=== PATIENT | female | born 1940 | race Asian ===

== ENCOUNTER 2018-03-29 18:54 | Inpatient (IN) | payer OTHER ==
[~2018-03-29] VITALS: Ht 149.9 cm; Wt 46.8 kg
[2018-03-29 19:00] VITALS: Ht 149.9 cm; Wt 46.8 kg
[2018-03-29] MEDS ORDERED: SODIUM CHLORIDE 0.9% 1L BAG IV* STA (19:09)
--- NOTE | 2018-03-29 19:28 | ERD ---
ER Documentation Chief Complaint Chief Complaint BIBA [id number],fever,confused when found by EMS,back of neck pain HPI 77-year-old woman brought in by family member for fever and increased urinary frequency beginning this morning, patient states she feels weak and dehydrated and has lost her appetite. She has had no hematuria, no cough, no vomiting or diarrhea, no complaints of chest pain or shortness of breath ROS All systems reviewed and are negative except as per history of present illness. Medications Home Meds No Active Prescriptions or Reported Meds Allergies Allergies: Coded Allergies: No Known Allergy (Unverified , 03/29/18) PMhx/Soc Hypertension, arthritis FmHx Family History: No diabetes Physical Exam Vitals Vital Signs Date Temp Pulse Resp B/P (MAP) Pulse Ox O2 O2 Flow FiO2 Time Delivery Rate 03/29/18 100.4 112 18 77/46 (56) 98 Room Air 22:00 03/29/18 101.1 109 18 98/55 (69) 97 Room Air 21:15 03/29/18 101.1 115 107/63 98 Room Air 20:53 (78) 03/29/18 101.5 121 18 107/63 97 Room Air 20:30 (78) 03/29/18 102.7 19:43 03/29/18 103.2 119 18 109/57 95 19:00 (74) Physical Exam GENERAL: Well-developed, elderly woman, appears dehydrated, febrile HEENT: Dry mucous membranes, pink conjunctiva, no cervical spine tenderness or step-off deformities, no goiter, no jaundice or icterus, extraocular movements intact without pain. No submandibular induration, and no pharyngeal erythema NEURO: Alert and oriented 3, cranial nerves II through XII intact bilaterally, pupils equal round reactive to light, no focal deficits or facial asymmetry, sensation intact distally Strength 5/5 in upper and lower extremities bilaterally CARDIAC: Tachycardic and regular, no murmurs rubs or gallops LUNGS: Clear bilaterally no wheezing crackles or stridor ABDOMEN: Soft nontender, no guarding, no rigidity, no rebound, no psoas sign no obturator sign. SKIN: Warm and dry to touch, no abrasions, contusions, or hematomas, no lacerations, no ecchymosis, no target lesions, and without ulcers EXTREMITIES: No clubbing cyanosis or edema, calves are bilaterally symmetrical, no Homans sign, no popliteal cord sign. Distal pulses equal and bilateral PSYCH: Normal affect without agitation or irritability Result Diagram: 03/29/18192403/29/181924 Results 24 hrs Laboratory Tests Test 03/29/18 19:25 03/29/18 19:28 03/29/18 20:45 03/29/18 21:54 White Blood Count 3.2 10^3/ul Red Blood Count 3.88 10^6/ul Hemoglobin 12.3 g/dl Hematocrit 37.2 % Mean Corpuscular 95.9 fl Volume Mean Corpuscular 31.7 pg Hemoglobin Mean Corpuscular 33.1 g/dl Hemoglobin Concen t Red Cell 12.4 % Distribution Width Platelet Count 83 10^3/UL Mean Platelet 10.5 fl Volume Immature 0.000 % Granulocytes % Neutrophils % % Segmented 40 % Neutrophils % (Manual) Band Neutrophils 39 % % (Manual) Lymphocytes % % Lymphocytes % 14 % (Manual) Monocytes % % Monocytes % 5 % (Manual) Eosinophils % % Basophils % % Metamyelocytes % 2 % (manual) Nucleated Red 0.0 /100WBC Blood Cells % Immature 0.000 10^3/ul Granulocytes # Neutrophils # 10^3/ul Neutrophils # 1.3 10^3/ul (Manual) Band Neutrophils 1.2 10^3/ul # Lymphocytes 0.4 10^3/ul (Manual) Lymphocytes # 10^3/ul Monocytes # 10^3/ul Monocytes # 0.1 10^3/ul (Manual) Eosinophils # 10^3/ul Basophils # 10^3/ul Metamyelocytes # 0.0 10^3/ul Nucleated Red 10^3/ul Blood Cells # Platelet Estimate DECREASED Giant Platelets 3 % Prothrombin Time 15.4 Sec Prothrombin Time 1.2 Ratio INR International 1.21 Normalized Ratio Activated 36.8 Sec Partial Thrombopl ast Time Sodium Level 134 mmol/L Potassium Level 4.9 mmol/L Chloride Level 98 mmol/L Carbon Dioxide 27 mmol/L Level Anion Gap 9 Blood Urea 20 mg/dl Nitrogen Creatinine 0.94 mg/dl Est Glomerular mL/min Filtrat Rate mL/min Glucose Level 163 mg/dl Calcium Level 10.3 mg/dl Total Bilirubin 1.9 mg/dl Direct Bilirubin 0.20 mg/dl Indirect 1.7 mg/dl Bilirubin Aspartate Amino 116 IU/L Transf (AST/SGOT) Alanine 59 IU/L Aminotransferase (ALT/SGPT) Alkaline 145 IU/L Phosphatase Troponin I 0.026 ng/ml Total Protein 8.1 g/dl Albumin 4.1 g/dl Globulin 4.00 g/dl Albumin/Globulin 1.02 Ratio Lipase 48 U/L POC Venous 2.1 mmol/L 2.0 mmol/L Lactate Urine Color YELLOW Urine Clarity CLEAR Urine pH 5.0 Urine Specific 1.014 [place] Urine Ketones TRACE mg/dL Urine Nitrite NEGATIVE mg/dL Urine Bilirubin NEGATIVE mg/dL Urine 2+ mg/dL Urobilinogen Urine Leukocyte NEGATIVE Prince/ul Esterase Urine Microscopic 19 /HPF RBC Urine Microscopic 1 /HPF WBC Urine Squamous FEW /HPF Epithelial Cells Urine Mucus FEW /HPF Urine Hemoglobin 3+ mg/dL Urine Glucose NEGATIVE mg/dL Urine Total 2+ mg/dl Protein Current Medications Medications Dose Sig/[place] Start Time Status Last (Trade) Ordered Route PRN Stop Time Admin Dose Reason Admin Sodium 3,000 ml BOLUS OVER 2 03/29/18 DC 03/29/18 Chloride HOURS STAT 19:09 19:42 (NS) IV* 03/29/18 19:11 Ceftriaxone 50 ml @ ONCE ONCE 03/29/18 DC 03/29/18 Sodium 100 mls/hr IVPB 19:30 19:42 03/29/18 19:59 Ibuprofen 600 mg ONCE ONCE 03/29/18 DC 03/29/18 (Motrin) PO 19:30 19:43 03/29/18 19:31 Lidocaine 20 ml STK-MED 03/29/18 DC (Xylocaine ONCE .ROUTE 22:20 1% (Mdv) 20 03/29/18 22:21 ml) Lidocaine 30 ml ONCE STAT 03/29/18 DC (Xylocaine INJ 22:39 1% (Mpf)) 03/29/18 22:44 Sodium 1,000 ml @ Q30M ONCE 03/29/18 Chloride 2,000 mls/hr IV 23:00 03/29/18 23:29 250 ml @ TITRATE IV 03/29/18 Norepinephrin 1.875 mls/ 23:00 e hr Procedures/MDM IV line was established patient was placed on monitoring and evaluation advisor rhythm strip rev ealed a sinus tachycardia at 120 bpm with upright P and T waves. Patient was febrile, blood and urine cultures have been ordered results are pending I will follow-up. I administered 2 L normal saline IV for dehydration, ibuprofen 600 mg p.o. for fever and ceftriaxone 1 g IV. Patient later received another 2 L normal saline for hypotension, and also received Zosyn 3.375 g IV EKG performed, read by me: Sinus tachycardia at 113 bpm, normal sinus rhythm, normal axis, no acute ST segment changes, narrow QRS complex, with good R-wave progression in precordial leads. Chest X-ray 1V Interpreted by me: Soft Tissue: No acute abnormalities Bones: No acute abnormalities Mediastinum/Cardiac Silhouette/Lungs: No acute abnormalities CBC reveals leukopenia 3.2, electrolytes are unremarkable, liver function tests unremarkable, troponin negative, urinalysis negative. Lactic acid initially elevated at 2.1, repeat 2.0 Patient's infectious symptoms have not stabilized and the patient is at risk of rapid decompensation. The patient will be admitted for careful hydration, antibi otic therapy, and infectious source control. SEVERE SEPSIS CRITERIA: Infectious source: Unknown End organ damage indicated by: [Lactate > 2.0 mmol/L Hypotension (SBP < 90 or >40 mmHG drop or MAP < 65) SEPSIS MANAGEMENT Time of recognition of sepsis: Upon arrival. Time of recognition of severe sepsis: 2199. Time of recognition of septic shock: 0 3 HOUR BUNDLE Blood cultures x 2 before broad-spectrum antibiotics: Yes 30 ml/kg NS bolus completed Initial lactate 2.1 Repeat lactate 2.0 SEPTIC SHOCK ASSESSMENT: No lactic acid > 4.0 Yes persistent hypotension (SBP < 90 or 40 mmHg drop, MAP < 65) despite 30 mL/kg IV fluid bolus VOLUME REASSESSMENT FOR SEPTIC SHOCK: Reevaluation Time: 2300 Temp 98.7, BP 87/54, heart rate 120 bpm, respiratory rate 20 breaths/min, oxygen saturation 98%. Heart tachycardic and regular Lungs no crackles Skin warm & dry Cap Refill less than 2 seconds Peripheral pulses radially present PERSISTENT HYPOTENSION TREATMENT: Comfort care no Central line placed Vasopressor started norepinephrine I considered further perfusion assessment with CVP measurement, SCVO2, bedside ultrasound volume assessment, passive leg raise, trial of further fluid bolus. And proceeded with 30 ml/kg fluid bolus of NSS, broad spectrum antibiotics, and admission. CRITICAL CARE: Critical care time 35 minutes, this was time separate from other billable procedures. Emergent fluid management while maintaining close respiratory support. Provision of immediate and broad-spectrum antibiotic therapy. Simultaneous assessment for possible sources in order to direct targeted therapy. Consideration for invasive and chemical support to prevent cardiopulmonary collapse. Critical care time is independent of procedures performed. Central Line Placement by me: After the patient was consented and a time out was performed, appropriate hand hygiene was performed, the skin site was fully prepped and maximal sterile barrier technique was employed where the patient was sterilely draped, and the provider wore a mask and sterile gown and gloves. Anesthesia: 1% lidocaine locally Location: Right subclavian vein Device: Multiple lumen Technique: Seldinger technique. Secured with suture. Results: Venous return from all ports with easy saline flush. No complications. The entire guide wire retrieved and disposed of. ED Ultrasound: Central line placed by me using concurrent ultrasound guidance done using sterile technique. Real time image archived in the medical record confirms vascular anatomy. Chest X-ray 1V Interpreted by me: Central line in SVC, Normal soft tissue, No evidence of pneumothorax. Accepting Care Team: Current data and ongoing care discussed. Time: Time of admission Primary Provider: Hospitalist Consulting: Infectious disease Outstanding Data: none Departure Diagnosis: Primary Impression: Sepsis Sepsis type: sepsis due to unspecified organism Qualified Codes: A41.9 - Sepsis, unspecified organism Additional Impressions: Hypotension Hypotension type: unspecified hypotension type Qualified Codes: I95.9 - Hypotension, unspecified Dehydration Condition: PAMELA Robles MD Mar 29, 2018 19:28
[2018-03-29] MEDS ORDERED: CEFTRIAXONE 1 GM/50 ML (PMX) 50 ML IVPB ONE (19:30)
[2018-03-29] MEDS ORDERED: IBUPROFEN 600 MG TAB PO ONE (19:30)
[2018-03-29] MEDS ORDERED: LIDOCAINE 1% (MDV) 20 ML INJ ONE (22:20)
[2018-03-29] MEDS ORDERED: LIDOCAINE 1% (MPF) 30 ML INJ INJ STA (22:39)
[2018-03-29] MEDS ORDERED: NORepinephrine 8MG/250 ML (PMX 250 ML IV SCH (23:00)
[2018-03-29] MEDS ORDERED: SOD CHLORIDE 0.9% 1,000 ML IV ONE (23:00)
[2018-03-29] MEDS: SOD CHLORIDE 0.9% 1,000 ML IV SCH (23:20)
[2018-03-29] MEDS ORDERED: NACL 0.9% 3 ML SYG IV SCH (23:30)
[2018-03-29] MEDS ORDERED: PIPER-TAZO 3.375 GM IV (PMX) 100 ML IVPB ONE (23:30)
[2018-03-29] MEDS ORDERED: morphine 2 MG INJ IV PRN (23:30)
[2018-03-30] VITALS (80 sets, daily range): BP systolic 77–119; BP diastolic 43–97; PULSE 66–122; RESP 13–34
--- NOTE | 2018-03-30 00:06 | HP ---
Date/Time of Note Date/Time of Note DATE: 03/30/18 TIME: 00:06 Assessment/Plan VTE Prophylaxis Pharmacological prophylaxis: other Lines/Catheters IV Catheter Type (from Nrsg): Saline Lock Assessment/Plan Hospital Course Objective Physical exam General: Patient is laying in bed and answers questions appropriately Mentation: Patient is alert and oriented 4, Head: Normocephalic atraumatic Eyes: EOMI, pupils reactive to light Neck: Supple, nontender, midline Respiratory: Clear to auscultation bilaterally Cardiovascular: regular rate, no obvious murmurs Gastrointestinal: non-tender to palpation, bowel sounds heard. Neurological: Moves all extremities spontaneously Skin: No new skin lesions Assessment and plan Systemic inflammatory response syndrome with hypotension -No suspected source currently, at first meningitis was considered given c omplaints of neck pain however upon further inquiry, neck pain is chronic approximately 3 months old with no change, chest x-ray is clear with no respiratory complaints, abdominal CT is negative for any acute abdominal pathology and UA is negative for UTI -Until further investigation is concluded, will continue broad-spectrum antibiotics -Blood cultures -IV fluids -Pressors as needed -Fever appears to be resolving, patient received 1 dose of ibuprofen in the ED, however appears to be doing better with fluids Encephalopathy, resolved -Questionable encephalopathy as patient's family states that she was saying random things, however patient is completely alert and oriented since arriving in the ED -The encephalopathy combined with patient's neck pain was originally considered for meningitis, however after actually speaking with the patient who is completely alert and oriented and finding out that the neck pain is chronic, meningitis is lower on the differential. -CT head pending Neck pain -Chronic for over 3 months, patient states that she may be sleeping incorrectly, pain has not gotten worse or better, unlikely this is related to patient's current hospitalization but will get CT of the spine to rule out other pathology Leukopenia -Unknown cause of low white count, possible issues include hematologic malignancies, nutritional deficiencies, viral illnesses, rheumatologic, and a variety of other possibilities -Monitor repeat CBC tomorrow Likely cirrhosis -Seen on CT, -Hepatitis panel pending Thrombocytopenia -Patient does have cirrhosis seen on CT, patient not fully aware, likely cause of thrombocytopenia as well as mildly elevated coag factors Elevated bilirubin -Very mild, likely sequelae of patient's cirrhosis seen on CT Elevated AST and ALT levels -Likely secondary to cirrhosis, patient denies alcohol use Elevated INR and PT and PTT -Likely is elevated due to cirrhosis Disposition -admit to the ICU for pressors -Unknown reason for patient's severe hypotension, no clear infectious source at this time, continue current workup and supportive treatment, Result Diagram: 03/29/18192403/29/181924 Results 24hrs Laboratory Tests Test 03/29/18 19:25 03/29/18 19:28 03/29/18 20:45 03/29/18 21:54 White Blood Count 3.2 L Red Blood Count 3.88 L Hemoglobin 12.3 Hematocrit 37.2 Mean Corpuscular 95.9 Volume Mean Corpuscular 31.7 Hemoglobin Mean Corpuscular 33.1 Hemoglobin Concent Red Cell 12.4 Distribution Width Platelet Count 83 L Mean Platelet Volume 10.5 H Immature 0.000 L Granulocytes % Neutrophils % Segmented 40 Neutrophils % (Manual) Band Neutrophils % 39 H (Manual) Lymphocytes % Lymphocytes % 14 L (Manual) Monocytes % Monocytes % (Manual) 5 Eosinophils % Basophils % Metamyelocytes % 2 H (manual) Nucleated Red Blood 0.0 Cells % Immature 0.000 Granulocytes # Neutrophils # Neutrophils # 1.3 L (Manual) Band Neutrophils # 1.2 H Lymphocytes (Manual) 0.4 L Lymphocytes # Monocytes # Monocytes # (Manual) 0.1 L Eosinophils # Basophils # Metamyelocytes # 0.0 Nucleated Red Blood Cells # Platelet Estimate DECREASED Giant Platelets 3 H Prothrombin Time 15.4 H Prothrombin Time 1.2 Ratio INR International 1.21 Normalized Ratio Activated 36.8 H Partial Thromboplast Time Sodium Level 134 L Potassium Level 4.9 Chloride Level 98 Carbon Dioxide Level 27 Anion Gap 9 Blood Urea Nitrogen 20 Creatinine 0.94 Est Glomerular Filtrat Rate mL/min Glucose Level 163 Calcium Level 10.3 H Total Bilirubin 1.9 H Direct Bilirubin 0.20 Indirect Bilirubin 1.7 H Aspartate Amino 116 H Transf (AST/SGOT) Alanine 59 Aminotransferase (AL T/SGPT) Alkaline Phosphatase 145 H Troponin I 0.026 Total Protein 8.1 Albumin 4.1 Globulin 4.00 H Albumin/Globulin 1.02 Ratio Lipase 48 POC Venous Lactate 2.1 *H 2.0 Urine Color YELLOW Urine Clarity CLEAR Urine pH 5.0 Urine Specific 1.014 [place] Urine Ketones TRACE A Urine Nitrite NEGATIVE Urine Bilirubin NEGATIVE Urine Urobilinogen 2+ H Urine Leukocyte NEGATIVE Esterase Urine Microscopic 19 H RBC Urine Microscopic 1 WBC Urine Squamous FEW Epithelial Cells Urine Mucus FEW A Urine Hemoglobin 3+ H Urine Glucose NEGATIVE Urine Total Protein 2+ H HPI/ROS Admit Date/Time Admit Date/Time Hx of Present Illness Patient is a [place] female with no known past medical history per patient who presents to [facility] after reportedly speaking delusional thoughts by her . Patient's family members, her sisters, were called by her who also found patient speaking gibberish people patient was sent to the ED however by the time patient admitted to the ED with no additional intervention patient seemed to be completely alert and oriented. Currently patient is completely alert and oriented and has multiple complaints. Patient states that she has been suffering from neck pain, but upon further questioning this pain has been going on for 3 months now and it is not gotten better nor worsened. Patient also states that she currently has a headache and suffers from constipation. Otherwise patient states that there were no other medical issues that were concerning of her before this incident. Patient currently denies leg pain, swelling, chest pain, shortness of breath. denies diarrhea, but states she has been urinating more frequently than usual. PMH/Family/Social Past Medical History Medications Current Medications Sodium Chloride 1,000 ml @ 2,000 mls/hr Q30M ONCE IV Last administered on 03/29/18at 23:11; Admin Dose 2,000 MLS/HR; Start 03/29/18 at 23:00; Stop 03/29/18 at 23:29 Norepinephrine 250 ml @ 1.875 mls/ hr TITRATE IV ; Start 03/29/18 at 23:00 Piperacillin Sod/ Tazobactam Sod 100 ml @ 200 mls/hr ONCE ONCE IVPB Last administered on 03/29/18at 23:13; Admin Dose 200 MLS/HR; Start 03/29/18 at 23:30; Stop 03/29/18 at 23:59 Coded Allergies: No Known Allergy (Unverified , 03/29/18) Social History Smoking Status: Never smoker Exam/Review of Systems Vital Signs Vitals Vital Signs Date Temp Pulse Resp B/P (MAP) Pulse Ox O2 O2 Flow FiO2 Time Delivery Rate 03/29/18 100.4 112 18 77/46 (56 98 Room Air 22:00 PAMELA HOLLIS Mar 30, 2018 00:06
[2018-03-30] MEDS ORDERED: VANCOMYCIN IV PER PHARMACY XX SCH (01:00)
[2018-03-30] MEDS ORDERED: VANCOMYCIN 1 GM 250 ML IVPB SCH (01:00)
[2018-03-30] MEDS ORDERED: NORepinephrine 8MG/250 ML (PMX 250 ML IV SCH (02:00)
[2018-03-30] MEDS: SOD CHLORIDE 0.9% 1,000 ML IV SCH ×3 (02:07→23:51)
[2018-03-30] MEDS: PIPER-TAZO 2.25 GM/NS 50 ML IVPB SCH ×5 (05:36→23:50)
[2018-03-30] MEDS ORDERED: PIPER-TAZO 3.375 GM IV (PMX) 100 ML IVPB SCH (06:00)
[2018-03-30] MEDS ORDERED: POTASSIUM CHLORIDE (SR) 20 MEQ TAB PO STA (06:50)
--- NOTE | 2018-03-30 09:08 | PN ---
Date/Time of Note Date/Time of Note DATE: 03/30/18 TIME: 09:04 Assessment/Plan VTE Prophylaxis SCD applied (from Nsg): Yes Pharmacological prophylaxis: other Lines/Catheters IV Catheter Type (from Nrsg): Saline Lock Urinary Cath still in place: No Assessment/Plan Hospital Course S: Patient on low-dose pressor support, but awake and alert, answering questions tolerating diet. O: VS-see below Physical exam General: lying in bed and answers questions appropriately Mentation: Patient is alert and oriented 4, Head: Normocephalic atraumatic Eyes: EOMI, pupils reactive to light Neck: Supple, nontender, midline Respiratory: Clear to auscultation bilaterally Cardiovascular: regular rate, no obvious murmurs Gastrointestinal: non-tender to palpation, bowel sounds heard. Neurological: Moves all extremities spontaneously Skin: No new skin lesions Assessment and plan: 77-year-old female who presents with: #Septic shock: likely from gram-negative elba bacteremia. Positive fevers. Unclear source however, UA negative, chest x-ray no acute findings. -continue broad-spectrum antibiotics -Follow-up final results of blood cultures -IV fluids -Continue pressors as needed -We will also obtain infectious disease consult # Encephalopathy- resolved-Questionable encephalopathy as patient's family stat es that she was saying random things, however patient is completely alert and oriented since arriving in the ED, again likely secondary to the gram-negative elba bacteremia with septic shock. There was however on CT scan possible cirrhosis, no prior history of this. -As mentioned above, continue pressors, IV fluids, antibiotics -We will also check ammonia level, of note acute hepatitis panel negative. # Thrombocytopenia -again, patient does have cirrhosis seen on CT, patient not fully aware, likely cause of thrombocytopenia as well as mildly elevated coag factors -Monitor CBC daily for now and for signs of bleeding, none presently -Hold all anticoagulants #Slightly elevated LFTs + coag's: Patient with elevated AST and ALT levels, as well as elevated bilirubin-Very mild, likely sequelae of patient's cirrhosis seen on CT. patient denies alcohol use -Monitor for now Critical care time spent in patient care today equals 50 minutes. Result Diagram: 03/30/18 0429 03/30/18 0429 Results 24hrs Laboratory Tests Test 03/29/18 19:25 03/29/18 19:28 03/29/18 20:45 03/29/18 21:54 White Blood Count 3.2 L Red Blood Count 3.88 L Hemoglobin 12.3 Hematocrit 37.2 Mean Corpuscular 95.9 Volume Mean Corpuscular 31.7 Hemoglobin Mean Corpuscular 33.1 Hemoglobin Concent Red Cell 12.4 Distribution Width Platelet Count 83 L Mean Platelet Volume 10.5 H Immature 0.000 L Granulocytes % Neutrophils % Segmented 40 Neutrophils % (Manual) Band Neutrophils % 39 H (Manual) Lymphocytes % Lymphocytes % 14 L (Manual) Monocytes % Monocytes % (Manual) 5 Eosinophils % Basophils % Metamyelocytes % 2 H (manual) Nucleated Red Blood 0.0 Cells % Immature 0.000 Granulocytes # Neutrophils # Neutrophils # 1.3 L (Manual) Band Neutrophils # 1.2 H Lymphocytes (Manual) 0.4 L Lymphocytes # Monocytes # Monocytes # (Manual) 0.1 L Eosinophils # Basophils # Metamyelocytes # 0.0 Nucleated Red Blood Cells # Platelet Estimate DECREASED Giant Platelets 3 H Prothrombin Time 15.4 H Prothrombin Time 1.2 Ratio INR International 1.21 Normalized Ratio Activated 36.8 H Partial Thromboplast Time Sodium Level 134 L Potassium Level 4.9 Chloride Level 98 Carbon Dioxide Level 27 Anion Gap 9 Blood Urea Nitrogen 20 Creatinine 0.94 Est Glomerular Filtrat Rate mL/min Glucose Level 163 Calcium Level 10.3 H Total Bilirubin 1.9 H Direct Bilirubin 0.20 Indirect Bilirubin 1.7 H Aspartate Amino 116 H Transf (AST/SGOT) Alanine 59 Aminotransferase (AL T/SGPT) Alkaline Phosphatase 145 H Troponin I 0.026 Total Protein 8.1 Albumin 4.1 Globulin 4.00 H Albumin/Globulin 1.02 Ratio Lipase 48 POC Venous Lactate 2.1 *H 2.0 Urine Color YELLOW Urine Clarity CLEAR Urine pH 5.0 Urine Specific 1.014 [place] Urine Ketones TRACE A Urine Nitrite NEGATIVE Urine Bilirubin NEGATIVE Urine Urobilinogen 2+ H Urine Leukocyte NEGATIVE Esterase Urine Microscopic 19 H RBC Urine Microscopic 1 WBC Urine Squamous FEW Epithelial Cells Urine Mucus FEW A Urine Hemoglobin 3+ H Urine Glucose NEGATIVE Urine Total Protein 2+ H Test 03/30/18 00:13 03/30/18 04:29 Fibrinogen 486.0 H D-Dimer 5480.91 H D-Dimer Comment Lactic Acid Level 1.5 Vitamin B12 Level 817 Folate > 20.0 H Ethyl Alcohol Level < 10.0 H Hepatitis B Surface NEGATIVE Antigen Hepatitis B Core NEGATIVE Total Antibody Hepatitis C Antibody NEGATIVE White Blood Count 15.1 #H Red Blood Count 3.24 L Hemoglobin 10.4 L Hematocrit 31.2 L Mean Corpuscular 96.3 Volume Mean Corpuscular 32.1 Hemoglobin Mean Corpuscular 33.3 Hemoglobin Concent Red Cell 12.6 Distribution Width Platelet Count 70 L Mean Platelet Volume 10.9 H Immature 2.500 H Granulocytes % Neutrophils % Lymphocytes % Monocytes % Eosinophils % Basophils % Nucleated Red Blood 0.0 Cells % Immature 0.370 H Granulocytes # Neutrophils # Lymphocytes # Monocytes # Eosinophils # Basophils # Nucleated Red Blood Cells # Sodium Level 139 Potassium Level 3.1 L Chloride Level 109 # Carbon Dioxide Level 19 L Anion Gap 11 Blood Urea Nitrogen 19 Creatinine 0.95 Est Glomerular Filtrat Rate mL/min Glucose Level 165 Hemoglobin A1c 5.5 Calcium Level 8.0 L Magnesium Level 1.7 Total Bilirubin 1.2 Direct Bilirubin 0.50 #H Indirect Bilirubin 0.7 Aspartate Amino 97 H Transf (AST/SGOT) Alanine 58 Aminotransferase (AL T/SGPT) Alkaline Phosphatase 82 Total Protein 6.1 # Albumin 2.9 #L Globulin 3.20 Albumin/Globulin 0.90 Ratio Exam/Review of Systems Exam Vitals Vital Signs Date Temp Pulse Resp B/P (MAP) Pulse Ox O2 O2 Flow FiO2 Time Delivery Rate 03/30/18 72 19 117/70 98 Room Air 07:00 (86) 03/30/18 97.4 04:00 Intake and Output 03/29/18 03/29/18 03/30/18 1515:00 23:00 07:00 IntakeIntake Total 528.75 ml OutputOutput Total 250 ml BalanceBalance 278.75 ml Results Results 24hrs Laboratory Tests Test 03/29/18 19:25 03/29/18 19:28 03/29/18 20:45 03/29/18 21:54 White Blood Count 3.2 L Red Blood Count 3.88 L Hemoglobin 12.3 Hematocrit 37.2 Mean Corpuscular 95.9 Volume Mean Corpuscular 31.7 Hemoglobin Mean Corpuscular 33.1 Hemoglobin Concent Red Cell 12.4 Distribution Width Platelet Count 83 L Mean Platelet Volume 10.5 H Immature 0.000 L Granulocytes % Neutrophils % Segmented 40 Neutrophils % (Manual) Band Neutrophils % 39 H (Manual) Lymphocytes % Lymphocytes % 14 L (Manual) Monocytes % Monocytes % (Manual) 5 Eosinophils % Basophils % Metamyelocytes % 2 H (manual) Nucleated Red Blood 0.0 Cells % Immature 0.000 Granulocytes # Neutrophils # Neutrophils # 1.3 L (Manual) Band Neutrophils # 1.2 H Lymphocytes (Manual) 0.4 L Lymphocytes # Monocytes # Monocytes # (Manual) 0.1 L Eosinophils # Basophils # Metamyelocytes # 0.0 Nucleated Red Blood Cells # Platelet Estimate DECREASED Giant Platelets 3 H Prothrombin Time 15.4 H Prothrombin Time 1.2 Ratio INR International 1.21 Normalized Ratio Activated 36.8 H Partial Thromboplast Time Sodium Level 134 L Potassium Level 4.9 Chloride Level 98 Carbon Dioxide Level 27 Anion Gap 9 Blood Urea Nitrogen 20 Creatinine 0.94 Est Glomerular Filtrat Rate mL/min Glucose Level 163 Calcium Level 10.3 H Total Bilirubin 1.9 H Direct Bilirubin 0.20 Indirect Bilirubin 1.7 H Aspartate Amino 116 H Transf (AST/SGOT) Alanine 59 Aminotransferase (AL T/SGPT) Alkaline Phosphatase 145 H Troponin I 0.026 Total Protein 8.1 Albumin 4.1 Globulin 4.00 H Albumin/Globulin 1.02 Ratio Lipase 48 POC Venous Lactate 2.1 *H 2.0 Urine Color YELLOW Urine Clarity CLEAR Urine pH 5.0 Urine Specific 1.014 [place] Urine Ketones TRACE A Urine Nitrite NEGATIVE Urine Bilirubin NEGATIVE Urine Urobilinogen 2+ H Urine Leukocyte NEGATIVE Esterase Urine Microscopic 19 H RBC Urine Microscopic 1 WBC Urine Squamous FEW Epithelial Cells Urine Mucus FEW A Urine Hemoglobin 3+ H Urine Glucose NEGATIVE Urine Total Protein 2+ H Test 03/30/18 00:13 03/30/18 04:29 Fibrinogen 486.0 H D-Dimer 5480.91 H D-Dimer Comment Lactic Acid Level 1.5 Vitamin B12 Level 817 Folate > 20.0 H Ethyl Alcohol Level < 10.0 H Hepatitis B Surface NEGATIVE Antigen Hepatitis B Core NEGATIVE Total Antibody Hepatitis C Antibody NEGATIVE White Blood Count 15.1 #H Red Blood Count 3.24 L Hemoglobin 10.4 L Hematocrit 31.2 L Mean Corpuscular 96.3 Volume Mean Corpuscular 32.1 Hemoglobin Mean Corpuscular 33.3 Hemoglobin Concent Red Cell 12.6 Distribution Width Platelet Count 70 L Mean Platelet Volume 10.9 H Immature 2.500 H Granulocytes % Neutrophils % Lymphocytes % Monocytes % Eosinophils % Basophils % Nucleated Red Blood 0.0 Cells % Immature 0.370 H Granulocytes # Neutrophils # Lymphocytes # Monocytes # Eosinophils # Basophils # Nucleated Red Blood Cells # Sodium Level 139 Potassium Level 3.1 L Chloride Level 109 # Carbon Dioxide Level 19 L Anion Gap 11 Blood Urea Nitrogen 19 Creatinine 0.95 Est Glomerular Filtrat Rate mL/min Glucose Level 165 Hemoglobin A1c 5.5 Calcium Level 8.0 L Magnesium Level 1.7 Total Bilirubin 1.2 Direct Bilirubin 0.50 #H Indirect Bilirubin 0.7 Aspartate Amino 97 H Transf (AST/SGOT) Alanine 58 Aminotransferase (AL T/SGPT) Alkaline Phosphatase 82 Total Protein 6.1 # Albumin 2.9 #L Globulin 3.20 Albumin/Globulin 0.90 Ratio Medications Medication Current Medications Sodium Chloride 1,000 ml @ 100 mls/hr Q10H IV Last administered on 03/30/18at 02:07; Admin Dose 100 MLS/HR; Start 03/29/18 at 23:20 IV Flush (NS 3 ml) 3 ml PER PROTOCOL IV ; Start 03/29/18 at 23:30 Acetaminophen (Tylenol Tab) 650 mg Q6H PRN PO .PAIN 1-3 OR TEMP; Start 03/29/18 at 23:30 Acetaminophen/ Hydrocodone Bitart ([place] (5/325)) 1 tab Q6H PRN PO .PAIN 4-6; Start 03/29/18 at 23:30 Morphine Sulfate (morphine) 2 mg Q4H PRN IV .PAIN 7-10; Start 03/29/18 at 23:30 Vancomycin HCl (Vanco Iv Per Pharmacy) VANCOMYCIN PER PHARMACY PER PROTOCOL XX ; Start 03/30/18 at 01:00 Piperacillin Sod/ Tazobactam Sod 50 ml @ 100 mls/hr Q6 IVPB Last administered on 03/30/18at 05:36; Admin Dose 100 MLS/HR; Start 03/30/18 at 00:00 Norepinephrine 250 ml @ 1.875 mls/ hr TITRATE IV Last administered on 03/30/18at 06:14; Admin Dose 7.5 MLS/HR; Start 03/30/18 at 02:00 ANGY GROVER Mar 30, 2018 09:08
--- NOTE | 2018-03-30 12:24 | CONS ---
DATE OF ADMISSION: 03/29/2018 DATE OF CONSULTATION: 03/30/2018 TYPE OF CONSULTATION: Infectious disease. REASON FOR CONSULTATION: Antibiotic management. HISTORY OF PRESENT ILLNESS: Randal Calderon is a 77-year-old female admitted on 03/29/2018 with fever o f 102 and confusion. Patient was brought in by her family for fever, increased urinary frequency beg inning on the . She states she feels weak, dehydrated, lost her appetite. On admission, her whi te count is 3.2, H and H of 12.3 and 37.2, platelet count 83,000. BUN and creatinine 20/0.94. Her b lood cultures are now growing gram-negative rods. Her urine shows negative for nitrite and leukocyte esterase. Serology for hepatitis B and C are negative. She had some neck pain. Cervical spine CT shows generalized to minimal demineralization, no evidence of acute cervical spine fracture, multilev el degenerative disk disease greatest at C6-C7, facet arthropathy, atherosclerotic calcification. Ch est x-ray shows no acute infiltrate. CT scan of the abdomen and pelvis shows no evidence of urolithi asis uropathy, diverticulitis or appendicitis. She has a fatty liver. Rotary levoscoliosis. Chest x-ray, right-sided subclavian central venous catheter tip is in good position. PAST MEDICAL HISTORY: Operations as outlined. FAMILY HISTORY: Noncontributory. SOCIAL HISTORY: She does not smoke, drink or abuse drugs. ALLERGIES: None to penicillin, sulfa or foods. MEDICATIONS: Per chart. REVIEW OF SYSTEMS: Noncontributory. PHYSICAL EXAMINATION: GENERAL: The patient is an elderly appearing female who is lying in bed in no acute distress, alert and oriented x3. VITAL SIGNS: Stable. She is afebrile. SKIN: Without generalized rash. HEENT: Within normal limits. NECK: Supple. LYMPH NODES: None palpable. CHEST: Clear to P and A with decreased breath sounds at the bases. HEART: Without murmur or gallop. ABDOMEN: Soft, nontender, without organosplenomegaly or masses. EXTREMITIES: Without cyanosis, clubbing, or edema. RECTAL AND GENITAL: Deferred. NEUROLOGIC: No focal neurological abnormality. IMPRESSION AND PLAN: Patient has bacteremia, etiology of which is unclear. She has cirrhosis on CT. No evidence of ascites to suggest spontaneous bacterial peritonitis. Her encephalopathy has cleare d. The source of her sepsis and severe hypotension is unclear. She could have pyelonephritis, but h er urine seems to be clear. There is no evidence for cholecystitis. I think we will have to observe her on appropriate antibiotic therapy. She is currently on vancomycin and Zosyn. I will dictate my findings to the hospitalists. Dictated By: RAVI ARTIS MD, JD/NTS Conf#: [id number] DID#: [id number] CC: PAMELA HOLLIS MD;*EndCC*
[2018-03-30] MEDS: HYDROCODONE/APAP (5/325) TAB PO PRN (21:07)
[2018-03-31] VITALS (81 sets, daily range): BP systolic 74–147; BP diastolic 32–98; PULSE 61–118; RESP 10–34
[2018-03-31] MEDS: SOD CHLORIDE 0.9% 1,000 ML IV SCH ×2 (01:56→18:07)
[2018-03-31] MEDS ORDERED: VANCOMYCIN 500 MG (PMX) 100 ML IVPB SCH (02:00)
[2018-03-31] MEDS: PIPER-TAZO 2.25 GM/NS 50 ML IVPB SCH ×4 (05:16→23:56)
--- NOTE | 2018-03-31 10:43 | PN ---
Date/Time of Note Date/Time of Note DATE: 03/31/18 TIME: 10:39 Assessment/Plan VTE Prophylaxis Risk score (from Nsg)>0 risk: 10 SCD applied (from Nsg): Yes Pharmacological prophylaxis: other Lines/Catheters IV Catheter Type (from Nrsg): Central Line Central line still needed: Yes Urinary Cath still in place: No Assessment/Plan Hospital Course S: Patient still on low-dose pressor support, complains of some generalized weakness, but awake and alert, answering questions tolerating diet. Seen by infectious disease team yesterday. O: VS-see below Physical exam General: lying in bed and answers questions appropriately Mentation: Patient is alert and oriented 4, Head: Normocephalic atraumatic Eyes: EOMI, pupils reactive to light Neck: Supple, nontender, midline Respiratory: Clear to auscultation bilaterally Cardiovascular: regular rate, no obvious murmurs Gastrointestinal: non-tender to palpation, bowel sounds heard. Neurological: No focal deficits Assessment and plan: 77-year-old female who presents with: #Septic shock: likely from gram-negative elba bacteremia. Positive fevers. Unclear source however, UA negative, chest x-ray no acute findings. -continue broad-spectrum antibiotics -Follow-up final results of blood cultures -still no specific bug identified -IV fluids -Continue pressors as needed and wean down as tolerated -Follow-up further recommendations from infectious disease consult # Encephalopathy- resolved-Questionable encephalopathy as patient's family states that she was saying random things, however patient is completely alert and oriented since arriving in the ED, again likely secondary to the gram- negative elba bacteremia with septic shock. There was however on CT scan possible cirrhosis -hepatitis panel negative patient denies alcohol use so unclear etiology. Ammonia levels are normal, LFTs overall are normal. -As mentioned above, continue pressors, IV fluids, antibiotics -Continue to monitor for now, consider GI consult as well? # Thrombocytopenia -again, patient does have cirrhosis seen on CT, patient not fully aware, likely cause of thrombocytopenia as well as mildly elevated coag factors. -Monitor CBC daily for now and for signs of bleeding, none presently -Hold all anticoagulants Critical care time spent in patient care today equals 40 minutes. Result Diagram: 03/31/18 0500 03/31/18 0442 Results 24hrs Laboratory Tests Test 03/31/18 04:42 03/31/18 05:00 Sodium Level 141 Potassium Level 4.0 Chloride Level 116 H Carbon Dioxide Level 18 L Anion Gap 7 Blood Urea Nitrogen 24 H Creatinine 0.74 Est Glomerular Filtrat Rate mL/min Glucose Level 93 # Calcium Level 7.9 L Phosphorus Level 1.8 L Magnesium Level 2.0 White Blood Count 13.0 H Red Blood Count 3.24 L Hemoglobin 10.0 L Hematocrit 31.2 L Mean Corpuscular Volume 96.3 Mean Corpuscular Hemoglobin 30.9 Mean Corpuscular Hemoglobin Concent 32.1 Red Cell Distribution Width 13.1 Platelet Count 65 L Mean Platelet Volume 11.8 H Immature Granulocytes % 8.900 H Neutrophils % Segmented Neutrophils % (Manual) 52 Band Neutrophils % (Manual) 37 H Lymphocytes % Lymphocytes % (Manual) 9 L Monocytes % Monocytes % (Manual) 1 Eosinophils % Basophils % Myelocytes % (Manual) 1 H Nucleated Red Blood Cells % 0.0 Immature Granulocytes # 1.150 H Neutrophils # Neutrophils # (Manual) 7.4 Band Neutrophils # 4.8 H Lymphocytes (Manual) 1.1 Lymphocytes # Monocytes # Monocytes # (Manual) 0.1 L Eosinophils # Basophils # Myelocytes # 0.1 H Nucleated Red Blood Cells # Platelet Estimate DECREASED Polychromasia 1+ Poikilocytosis 3+ Exam/Review of Systems Exam Vitals Vital Signs Date Temp Pulse Resp B/P (MAP) Pulse Ox O2 O2 Flow FiO2 Time Delivery Rate 03/31/18 85 25 115/90 99 09:30 (98) 03/31/18 Room Air 09:00 03/31/18 98.5 08:00 Intake and Output 03/30/18 03/30/18 03/31/18 1515:00 23:00 07:00 IntakeIntake Total 880.00 ml 1045.000 ml 1273.125 ml OutputOutput Total 500 ml BalanceBalance 380.00 ml 1045.000 ml 1273.125 ml Results Results 24hrs Laboratory Tests Test 03/31/18 04:42 03/31/18 05:00 Sodium Level 141 Potassium Level 4.0 Chloride Level 116 H Carbon Dioxide Level 18 L Anion Gap 7 Blood Urea Nitrogen 24 H Creatinine 0.74 Est Glomerular Filtrat Rate mL/min Glucose Level 93 # Calcium Level 7.9 L Phosphorus Level 1.8 L Magnesium Level 2.0 White Blood Count 13.0 H Red Blood Count 3.24 L Hemoglobin 10.0 L Hematocrit 31.2 L Mean Corpuscular Volume 96.3 Mean Corpuscular Hemoglobin 30.9 Mean Corpuscular Hemoglobin Concent 32.1 Red Cell Distribution Width 13.1 Platelet Count 65 L Mean Platelet Volume 11.8 H Immature Granulocytes % 8.900 H Neutrophils % Segmented Neutrophils % (Manual) 52 Band Neutrophils % (Manual) 37 H Lymphocytes % Lymphocytes % (Manual) 9 L Monocytes % Monocytes % (Manual) 1 Eosinophils % Basophils % Myelocytes % (Manual) 1 H Nucleated Red Blood Cells % 0.0 Immature Granulocytes # 1.150 H Neutrophils # Neutrophils # (Manual) 7.4 Band Neutrophils # 4.8 H Lymphocytes (Manual) 1.1 Lymphocytes # Monocytes # Monocytes # (Manual) 0.1 L Eosinophils # Basophils # Myelocytes # 0.1 H Nucleated Red Blood Cells # Platelet Estimate DECREASED Polychromasia 1+ Poikilocytosis 3+ Medications Medication Current Medications Sodium Chloride 1,000 ml @ 100 mls/hr Q10H IV Last administered on 03/30/18at 23:51; Admin Dose 100 MLS/HR; Start 03/29/18 at 23:20 IV Flush (NS 3 ml) 3 ml PER PROTOCOL IV ; Start 03/29/18 at 23:30 Acetaminophen (Tylenol Tab) 650 mg Q6H PRN PO .PAIN 1-3 OR TEMP; Start 03/29/18 at 23:30 Acetaminophen/ Hydrocodone Bitart ([place] (5/325)) 1 tab Q6H PRN PO .PAIN 4-6 Last administered on 03/30/18at 21:07; Admin Dose 1 TAB; Start 03/29/18 at 23:30 Morphine Sulfate (morphine) 2 mg Q4H PRN IV .PAIN 7-10; Start 03/29/18 at 23:30 Vancomycin HCl (Vanco Iv Per Pharmacy) VANCOMYCIN PER PHARMACY PER PROTOCOL XX ; Start 03/30/18 at 01:00 Piperacillin Sod/ Tazobactam Sod 50 ml @ 100 mls/hr Q6 IVPB Last administered on 03/31/18at 05:16; Admin Dose 100 MLS/HR; Start 03/30/18 at 00:00 Norepinephrine 250 ml @ 1.875 mls/ hr TITRATE IV Last administered on 03/30/18at 06:14; Admin Dose 7.5 MLS/HR; Start 03/30/18 at 02:00 Vancomycin HCl 100 ml @ 100 mls/hr Q24H IVPB Last administered on 03/31/18at 01:56; Admin Dose 100 MLS/HR; Start 03/31/18 at 02:00 Potassium Phosphate 40 meq/ Sodium Chloride 259.0909 ml @ 64.773 m... ONCE ONCE IVPB ; Start 03/31/18 at 11:00; Stop 03/31/18 at 14:59 ANGY GROVER Mar 31, 2018 10:43
[2018-03-31] MEDS ORDERED: POTASSIUM PHOSPHATE 40 MEQ in SOD CHLORIDE 0.9% 250 ML IVPB ONE (11:00)
--- NOTE | 2018-03-31 13:40 | CONS ---
Assessment/Plan Assessment/Plan Hospital Course (Demo Recall) No acute events overnight patient is awake looks comfortable denies pain no fevers overnight WBC 13 platelets 65 BUN 24 creatinine 0.74 Microbiology: Blood culture growing gram-negative rods, urine culture negative CT of the brain on admission revealed no acute abnormalities chest x-ray reve aled no radiographic evidence of an acute cardiopulmonary process CT of the abdomen and pelvis revealed no evidence of urolithiasis, obstructive uropathy, diverticulitis or appendicitis. Levoscoliosis lumbar spine. Central stenosis L4-L5. Chronic superior endplate compression fracture L1. Antimicrobials: Vancomycin, Zosyn Physical examination: Fragile well-developed elderly woman who is alert in no distress. Head atraumatic normocephalic neck is supple chest rise symmetrical breath sounds diminished bases. Heart: S1-S2. Abdomen soft bowel sounds present. Extremities without cyanosis Assessment: 1. Sepsis with shock 2. Gram-negative rods bacteremia of unclear etiology 3. Chronic L1 compression fracture 4. Status post acute encephalopathy 5. Anemia and thrombocytopenia Plan: Patient is clinically stable, we will repeat blood cultures, discontinue vancomycin, consider WBC scan, await for final cultures Consultation Date/Type/Reason Admit Date/Time Mar 29, 2018 at 23:14 Initial Consult Date Type of Consult id Date/Time of Note DATE: 03/31/18 TIME: 13:40 Exam/Review of Systems Exam Vitals Vital Signs Date Temp Pulse Resp B/P (MAP) Pulse Ox O2 O2 Flow FiO2 Time Delivery Rate 03/31/18 115 12:00 03/31/18 25 115/90 99 09:30 (98) 03/31/18 Room Air 09:00 03/31/18 98.5 08:00 Intake and Output 03/30/18 03/30/18 03/31/18 1515:00 23:00 07:00 IntakeIntake Total 880.00 ml 1045.000 ml 1273.125 ml OutputOutput Total 500 ml BalanceBalance 380.00 ml 1045.000 ml 1273.125 ml Results Result Diagram: 03/31/18 0500 03/31/18 0442 Results 24hrs Laboratory Tests Test 03/31/18 04:42 03/31/18 05:00 Sodium Level 141 Potassium Level 4.0 Chloride Level 116 H Carbon Dioxide Level 18 L Anion Gap 7 Blood Urea Nitrogen 24 H Creatinine 0.74 Est Glomerular Filtrat Rate mL/min Glucose Level 93 # Calcium Level 7.9 L Phosphorus Level 1.8 L Magnesium Level 2.0 White Blood Count 13.0 H Red Blood Count 3.24 L Hemoglobin 10.0 L Hematocrit 31.2 L Mean Corpuscular Volume 96.3 Mean Corpuscular Hemoglobin 30.9 Mean Corpuscular Hemoglobin Concent 32.1 Red Cell Distribution Width 13.1 Platelet Count 65 L Mean Platelet Volume 11.8 H Immature Granulocytes % 8.900 H Neutrophils % Segmented Neutrophils % (Manual) 52 Band Neutrophils % (Manual) 37 H Lymphocytes % Lymphocytes % (Manual) 9 L Monocytes % Monocytes % (Manual) 1 Eosinophils % Basophils % Myelocytes % (Manual) 1 H Nucleated Red Blood Cells % 0.0 Immature Granulocytes # 1.150 H Neutrophils # Neutrophils # (Manual) 7.4 Band Neutrophils # 4.8 H Lymphocytes (Manual) 1.1 Lymphocytes # Monocytes # Monocytes # (Manual) 0.1 L Eosinophils # Basophils # Myelocytes # 0.1 H Nucleated Red Blood Cells # Platelet Estimate DECREASED Polychromasia 1+ Poikilocytosis 3+ Medications Medication Current Medications Sodium Chloride 1,000 ml @ 100 mls/hr Q10H IV Last administered on 03/30/18at 23:51; Admin Dose 100 MLS/HR; Start 03/29/18 at 23:20 IV Flush (NS 3 ml) 3 ml PER PROTOCOL IV ; Start 03/29/18 at 23:30 Acetaminophen (Tylenol Tab) 650 mg Q6H PRN PO .PAIN 1-3 OR TEMP; Start 03/29/18 at 23:30 Acetaminophen/ Hydrocodone Bitart ([place] (5/325)) 1 tab Q6H PRN PO .PAIN 4-6 Last administered on 03/30/18at 21:07; Admin Dose 1 TAB; Start 03/29/18 at 23:30 Morphine Sulfate (morphine) 2 mg Q4H PRN IV .PAIN 7-10; Start 03/29/18 at 23:30 Vancomycin HCl (Vanco Iv Per Pharmacy) VANCOMYCIN PER PHARMACY PER PROTOCOL XX ; Start 03/30/18 at 01:00 Piperacillin Sod/ Tazobactam Sod 50 ml @ 100 mls/hr Q6 IVPB Last administered on 03/31/18at 11:57; Admin Dose 100 MLS/HR; Start 03/30/18 at 00:00 Norepinephrine 250 ml @ 1.875 mls/ hr TITRATE IV Last administered on 03/30/18at 06:14; Admin Dose 7.5 MLS/HR; Start 03/30/18 at 02:00 Vancomycin HCl 100 ml @ 100 mls/hr Q24H IVPB Last administered on 03/31/18at 01:56; Admin Dose 100 MLS/HR; Start 03/31/18 at 02:00 Potassium Phosphate 40 meq/ Sodium Chloride 259.0909 ml @ 64.773 m... ONCE ONCE IVPB Last administered on 03/31/18at 13:18; Admin Dose 64.773 MLS/HR; Start 03/31/18 at 11:00; Stop 03/31/18 at 14:59 MARISABEL TRAN NP Mar 31, 2018 13:40
--- NOTE | 2018-03-31 15:04 | RADRPT ---
Echocardiogram Report Patient Name: FRANK BUSHPatient ID: [id number] : 1940 (77y 6m)Study Date: 03/31/2018 7:31:52 AM Gender: FAccession #: [id number] Tech: LA Location: Ref.Physician: ANGY GROVER Height(Cm): BSA: Weight(Kg): Quality: AdequateAccount #: Procedures: Echocardiographic Report: Transthoracic echocardiogram with complete 2D, M-Mode, and doppler examination. Indications: Low BP. Measurements: 2D/M Mode Doppler Measurement Value Normal Range Measurement Value Normal Range LVIDd 2D 3.9 [ 3.8 - 5.2 ] cm AV Peak Benny 1.5 [ 100.0 - 170.0 ] cm/sec LVIDs 2D 2.5 [ 2.2 - 3.5 ] cm AV Peak PG 8.0 [ 2.0 - 9.0 ] mmHg LVPWd 2D 1.0 [ 0.6 - 0.9 ] cm LVOT Peak Benny 0.9 [ 70.0 - 110.0 ] cm/sec IVSd 2D 0.9 [ 0.6 - 0.9 ] cm LVOT Peak PG 3.0 [ 2.0 - 6.0 ] mmHg IVS/LVPW 2D 0.9 ratio Lat E` Benny 0.1 [ 10.0 - 15.0 ] cm/sec AoR Diam 2D 2.8 [ 2.3 - 3.1 ] cm TR Peak Benny 2.5 [ 100.0 - 280.0 ] cm/sec LA/Ao 2D 1 ratio TR Peak PG 25.0 mmHg LA Dimen 2D 2.6 [ 2.7 - 3.8 ] cm RVSP 28.0 [ 10.0 - 36.0 ] mmHg RA Pressure 3.0 mmHg Findings: Left Ventricle: Normal left ventricular systolic function. Normal left ventricular cavity size. Normal left ventricular wall thickness. Ejection fraction is visually estimated at 60 %. Tissue Doppler/Mitral Doppler indices are consistent with impaired relaxation (Stage I diastolic dysfunction). Right Ventricle: Normal right ventricular size. Normal right ventricular systolic function. Left Atrium: The left atrium is normal in size. Right Atrium: The right atrium is normal in size. Mitral Valve: Mitral valve leaflets appear mildly thickened. Mild mitral annular calcification. Trace mitral regurgitation. Aortic Valve: No hemodynamically significant aortic stenosis by doppler. Aortic cusps appear mildly calcified. Mild aortic valve regurgitation. Tricuspid Valve: Normal appearance of the tricuspid valve. Estimated peak PA systolic pressure 28 mmHg. There is mild tricuspid regurgitation. Pulmonic Valve: Normal pulmonic valve appearance. Pericardium: Normal pericardium with no significant pericardial effusion. Aorta: Normal aortic root. IVC: Normal size and normal respiratory collapse consistent with normal right atrial pressure. Conclusions: Normal left ventricular systolic function. Normal left ventricular cavity size. Normal left ventricular wall thickness. Ejection fraction is visually estimated at 60 %. Tissue Doppler/Mitral Doppler indices are consistent with impaired relaxation (Stage I diastolic dysfunction). Normal right ventricular size. Normal right ventricular systolic function. The left atrium is normal in size. The right atrium is normal in size. No hemodynamically significant aortic stenosis by doppler. Mild aortic valve regurgitation. Trace mitral regurgitation. There is mild tricuspid regurgitation. Normal pericardium with no significant pericardial effusion. Electronically Signed By: Maninder Taveras 2018-03-31 15:03:24 PST
[2018-03-31] MEDS: HYDROCODONE/APAP (5/325) TAB PO PRN (20:09)
[2018-03-31] MEDS ORDERED: LORAZEPAM 1 MG TAB ONE (20:35)
[2018-03-31] MEDS: LORAZEPAM 1 MG TAB PO PRN (20:40)
[2018-04-01] VITALS (43 sets, daily range): BP systolic 100–154; BP diastolic 53–98; PULSE 72–110; RESP 12–28
[2018-04-01] MEDS: SOD CHLORIDE 0.9% 1,000 ML IV SCH ×3 (05:40→21:20)
[2018-04-01] MEDS: PIPER-TAZO 2.25 GM/NS 50 ML IVPB SCH ×2 (05:43→11:36)
--- NOTE | 2018-04-01 11:04 | PN ---
Date/Time of Note Date/Time of Note DATE: 04/01/18 TIME: 10:59 Assessment/Plan VTE Prophylaxis Risk score (from Ns)>0 risk: 4 SCD applied (from Ns): Yes Pharmacological prophylaxis: other Lines/Catheters IV Catheter Type (from [facility], [place]): Central Line Central line still needed: Yes Urinary Cath still in place: No Assessment/Plan Hospital Course S: Patient was confused last night;also had to be briefly restarted on pressor support secondary to low blood pressure, but now stable and off of pressor support. O: VS-see below Physical exam General: lying in bed and answers questions appropriately Mentation: Patient is alert and oriented 4, Head: Normocephalic atraumatic Eyes: EOMI, pupils reactive to light Neck: Supple, nontender, midline Respiratory: Clear to auscultation bilaterally Cardiovascular: regular rate, no obvious murmurs Gastrointestinal: non-tender to palpation, bowel sounds heard. Neurological: No focal deficits 2D echo: Conclusions: Normal left ventricular systolic function. Normal left ventricular cavity size. Normal left ventricular wall thickness. Ejection fraction is visually estimated at 60 %. Tissue Doppler/Mitral Doppler indices are consistent with impaired relaxation (Stage I diastolic dysfunction). Normal right ventricular size. Normal right ventricular systolic function. The left atrium is normal in size. The right atrium is normal in size. No hemodynamically significant aortic stenosis by doppler. Mild aortic valve regurgitation. Trace mitral regurgitation. There is mild tricuspid regurgitation. Normal pericardium with no significant pericardial effusion. Assessment and plan: 77-year-old female who presents with: #Septic shock: likely from gram-negative elba bacteremia. Positive fevers on admission which are subsiding now. Unclear source however, UA negative, chest x-ray no acute findings. -Blood cultures show Klebsiella 2 out of 2 bottle growth, continue current antibiotics for now -IV fluids -Follow-up further recommendations from infectious disease consult # Encephalopathy- resolved-Questionable encephalopathy as patient's family states that she was saying random things, however patient is completely alert and oriented since arriving in the ED, again likely secondary to the gram- negative elba bacteremia with septic shock. There was however on CT scan possible cirrhosis -hepatitis panel negative patient denies alcohol use so unclear etiology. Ammonia levels are normal, LFTs overall are normal. -As mentioned above, continue pressors, IV fluids, antibiotics -Continue to monitor for now # Thrombocytopenia -again, patient does have cirrhosis seen on CT, patient not fully aware, likely cause of thrombocytopenia as well as mildly elevated coag factors. -Monitor CBC daily for now and for signs of bleeding, none presently -Hold all anticoagulants Critical care time spent in patient care today equals 40 minutes. Result Diagram: 04/01/1810 04/01/1810 Results 24hrs Laboratory Tests Test 04/01/18 05:10 White Blood Count 11.6 H Red Blood Count 3.15 L Hemoglobin 9.9 L Hematocrit 30.6 L Mean Corpuscular Volume 97.1 Mean Corpuscular Hemoglobin 31.4 Mean Corpuscular Hemoglobin Concent 32.4 Red Cell Distribution Width 13.2 Platelet Count 79 #L Mean Platelet Volume 11.7 H Immature Granulocytes % 0.800 H Neutrophils % Lymphocytes % Monocytes % Eosinophils % Basophils % Nucleated Red Blood Cells % 0.0 Immature Granulocytes # 0.090 H Neutrophils # Lymphocytes # Monocytes # Eosinophils # Basophils # Nucleated Red Blood Cells # Sodium Level 138 Potassium Level 3.8 Chloride Level 112 H Carbon Dioxide Level 18 L Anion Gap 8 Blood Urea Nitrogen 13 # Creatinine 0.54 Est Glomerular Filtrat Rate mL/min Glucose Level 90 Calcium Level 7.9 L Phosphorus Level 2.2 L Magnesium Level 1.9 Exam/Review of Systems Exam Vitals Vital Signs Date Temp Pulse Resp B/P (MAP) Pulse Ox O2 O2 Flow FiO2 Time Delivery Rate 04/01/18 77 08:00 04/01/18 20 98 07:45 04/01/18 119/61 07:30 (80) 04/01/18 98.8 Room Air 05:00 Intake and Output 03/31/18 03/31/18 04/01/18 1515:00 23:00 07:00 IntakeIntake Total 804.375 ml 231.875 ml 1229.375 ml BalanceBalance 804.375 ml 231.875 ml 1229.375 ml Results Results 24hrs Laboratory Tests Test 04/01/18 05:10 White Blood Count 11.6 H Red Blood Count 3.15 L Hemoglobin 9.9 L Hematocrit 30.6 L Mean Corpuscular Volume 97.1 Mean Corpuscular Hemoglobin 31.4 Mean Corpuscular Hemoglobin Concent 32.4 Red Cell Distribution Width 13.2 Platelet Count 79 #L Mean Platelet Volume 11.7 H Immature Granulocytes % 0.800 H Neutrophils % Lymphocytes % Monocytes % Eosinophils % Basophils % Nucleated Red Blood Cells % 0.0 Immature Granulocytes # 0.090 H Neutrophils # Lymphocytes # Monocytes # Eosinophils # Basophils # Nucleated Red Blood Cells # Sodium Level 138 Potassium Level 3.8 Chloride Level 112 H Carbon Dioxide Level 18 L Anion Gap 8 Blood Urea Nitrogen 13 # Creatinine 0.54 Est Glomerular Filtrat Rate mL/min Glucose Level 90 Calcium Level 7.9 L Phosphorus Level 2.2 L Magnesium Level 1.9 Medications Medication Current Medications Sodium Chloride 1,000 ml @ 100 mls/hr Q10H IV Last administered on 04/01/18 05:40; Admin Dose 100 MLS/HR; Start 03/29/18 at 23:20 IV Flush (NS 3 ml) 3 ml PER PROTOCOL IV ; Start 03/29/18 at 23:30 Acetaminophen (Tylenol Tab) 650 mg Q6H PRN PO .PAIN 1-3 OR TEMP; Start 03/29/18 at 23:30 Acetaminophen/ Hydrocodone Bitart ([place] (5/325)) 1 tab Q6H PRN PO .PAIN 4-6 Last administered on 03/31/18 20:09; Admin Dose 1 TAB; Start 03/29/18 at 23:30 Morphine Sulfate (morphine) 2 mg Q4H PRN IV .PAIN 7-10; Start 03/29/18 at 23:30 Piperacillin Sod/ Tazobactam Sod 50 ml @ 100 mls/hr Q6 IVPB Last administered on 04/01/18 05:43; Admin Dose 100 MLS/HR; Start 03/30/18 at 00:00 Norepinephrine 250 ml @ 1.875 mls/ hr TITRATE IV Last administered on 03/30/18at 06:14; Admin Dose 7.5 MLS/HR; Start 03/30/18 at 02:00 Lorazepam (Ativan) 1 mg Q6H PRN PO ANXIETY Last administered on 03/31/18 20:40; Admin Dose 1 MG; Start 03/31/18 at 20:30 ANGY GROVER Apr 01, 2018 11:04
[2018-04-01] MEDS: LORAZEPAM 1 MG TAB PO PRN (11:36)
[2018-04-01] MEDS ORDERED: POTASSIUM PHOSPHATE 20 MEQ in SOD CHLORIDE 0.9% 250 ML IVPB ONE (12:00)
--- NOTE | 2018-04-01 12:53 | CONS ---
Assessment/Plan Assessment/Plan Hospital Course (Demo Recall) Patient is sleeping looks comfortable vital signs stable off levo fed no fevers overnight WBC 11.6 H&H 9.9 and 30.6 platelets 79 bands 20 BUN 13 creatinine 0.54 Microbiology: Blood culture on admission grew Klebsiella pneumonia susceptible to all antibiotics except Ancef. Repeat blood cultures negative. Antimicrobials: Patient remains on Zosyn. CT of the brain on admission revealed no acute abnormalities chest x-ray revealed no radiographic evidence of an acute cardiopulmonary process CT of the abdomen and pelvis revealed no evidence of urolithiasis, obstructive uropathy, diverticulitis or appendicitis. Levoscoliosis lumbar spine. Central stenosis L4-L5. Chronic superior endplate compression fracture L1. Physical examination: Fragile well-developed elderly woman who is in no distress. Head atraumatic normocephalic neck is supple chest rise symmetrical breath sounds diminished bases. Heart: S1-S2. Abdomen soft bowel sounds present. Extremities without cyanosis Assessment: 1. Sepsis with shock 2. Gram-negative rods bacteremia of unclear etiology 3. Chronic L1 compression fracture 4. Status post acute encephalopathy 5. Anemia and thrombocytopenia Plan: Patient is clinically stable, repeat blood cultures negative, change antibiotics to Rocephin, await for WBC labeled nuclear scan Consultation Date/Type/Reason Admit Date/Time Mar 29, 2018 at 23:14 Initial Consult Date Type of Consult id Date/Time of Note DATE: 04/01/18 TIME: 12:52 Exam/Review of Systems Exam Vitals Vital Signs Date Temp Pulse Resp B/P (MAP) Pulse Ox O2 O2 Flow FiO2 Time Delivery Rate 04/01/18 77 08:00 04/01/18 20 98 07:45 04/01/18 119/61 07:30 (80) 04/01/18 98.8 Room Air 05:00 Intake and Output 03/31/18 03/31/18 04/01/18 1515:00 23:00 07:00 IntakeIntake Total 804.375 ml 231.875 ml 1229.375 ml BalanceBalance 804.375 ml 231.875 ml 1229.375 ml Results Result Diagram: 04/01/18 0510 04/01/18 0510 Results 24hrs Laboratory Tests Test 04/01/18 05:10 White Blood Count 11.6 H Red Blood Count 3.15 L Hemoglobin 9.9 L Hematocrit 30.6 L Mean Corpuscular Volume 97.1 Mean Corpuscular Hemoglobin 31.4 Mean Corpuscular Hemoglobin Concent 32.4 Red Cell Distribution Width 13.2 Platelet Count 79 #L Mean Platelet Volume 11.7 H Immature Granulocytes % 0.800 H Neutrophils % Segmented Neutrophils % (Manual) 73 Band Neutrophils % (Manual) 20 H Lymphocytes % Lymphocytes % (Manual) 4 L Monocytes % Monocytes % (Manual) 3 Eosinophils % Basophils % Nucleated Red Blood Cells % 0.0 Immature Granulocytes # 0.090 H Neutrophils # Neutrophils # (Manual) 8.7 H Band Neutrophils # 2.3 H Lymphocytes (Manual) 0.4 L Lymphocytes # Monocytes # Monocytes # (Manual) 0.3 Eosinophils # Basophils # Nucleated Red Blood Cells # Platelet Estimate DECREASED Giant Platelets 2 H Poikilocytosis 3+ Sodium Level 138 Potassium Level 3.8 Chloride Level 112 H Carbon Dioxide Level 18 L Anion Gap 8 Blood Urea Nitrogen 13 # Creatinine 0.54 Est Glomerular Filtrat Rate mL/min Glucose Level 90 Calcium Level 7.9 L Phosphorus Level 2.2 L Magnesium Level 1.9 Medications Medication Current Medications Sodium Chloride 1,000 ml @ 100 mls/hr Q10H IV Last administered on 04/01/18at 05:40; Admin Dose 100 MLS/HR; Start 03/29/18 at 23:20 IV Flush (NS 3 ml) 3 ml PER PROTOCOL IV ; Start 03/29/18 at 23:30 Acetaminophen (Tylenol Tab) 650 mg Q6H PRN PO .PAIN 1-3 OR TEMP; Start 03/29/18 at 23:30 Acetaminophen/ Hydrocodone Bitart ([place] (5/325)) 1 tab Q6H PRN PO .PAIN 4-6 Last administered on 03/31/18at 20:09; Admin Dose 1 TAB; Start 03/29/18 at 23:30 Morphine Sulfate (morphine) 2 mg Q4H PRN IV .PAIN 7-10; Start 03/29/18 at 23:30 Piperacillin Sod/ Tazobactam Sod 50 ml @ 100 mls/hr Q6 IVPB Last administered on 04/01/18at 11:36; Admin Dose 100 MLS/HR; Start 03/30/18 at 00:00 Norepinephrine 250 ml @ 1.875 mls/ hr TITRATE IV Last administered on 2/13/19at 06:14; Admin Dose 7.5 MLS/HR; Start 03/30/18 at 02:00 Lorazepam (Ativan) 1 mg Q6H PRN PO ANXIETY Last administered on 04/01/18at 11:36; Admin Dose 1 MG; Start 03/31/18 at 20:30 Potassium Phosphate 20 meq/ Sodium Chloride 254.5455 ml @ 63.636 m... ONCE ONCE IVPB ; Start 04/01/18 at 12:00; Stop 04/01/18 at 15:59 MARISABEL TRAN NP Apr 01, 2018 12:53
[2018-04-01] MEDS: CEFTRIAXONE 1 GM/50 ML (PMX) 50 ML IVPB SCH ×2 (13:00→15:23)
[2018-04-01] MEDS: ACETAMINOPHEN 325 MG TAB PO PRN (19:55)
[2018-04-02] VITALS (12 sets, daily range): BP systolic 103–152; BP diastolic 57–79; PULSE 73–115; RESP 17–19
[2018-04-02] MEDS: SOD CHLORIDE 0.9% 1,000 ML IV SCH ×2 (07:20→13:53)
--- NOTE | 2018-04-02 09:38 | PN ---
Date/Time of Note Date/Time of Note DATE: 04/02/18 TIME: 09:31 Assessment/Plan VTE Prophylaxis Risk score (from Ns)>0 risk: 4 SCD applied (from Nsg): Yes Pharmacological prophylaxis: other Lines/Catheters IV Catheter Type (from Nrsg): Central Line Central line still needed: Yes Urinary Cath still in place: No Assessment/Plan Hospital Course S: Patient out of ICU since yesterday, off pressor support since yesterday as well. Did have some confusion again last night. Seen by PT and ID team yesterday. O: VS-see below Physical exam General: lying in bed, no acute distress Head: Normocephalic atraumatic Eyes: EOMI, pupils reactive to light Neck: Supple, nontender, midline Respiratory: Clear to auscultation bilaterally Cardiovascular: regular rate, no obvious murmurs Gastrointestinal: non-tender to palpation, bowel sounds heard. Neurological: No focal deficits 2D echo: Conclusions: Normal left ventricular systolic function. Normal left ventricular cavity size. Normal left ventricular wall thickness. Ejection fraction is visually estimated at 60 %. Tissue Doppler/Mitral Doppler indices are consistent with impaired relaxation (Stage I diastolic dysfunction). Normal right ventricular size. Normal right ventricular systolic function. The left atrium is normal in size. The right atrium is normal in size. No hemodynamically significant aortic stenosis by doppler. Mild aortic valve regurgitation. Trace mitral regurgitation. There is mild tricuspid regurgitation. Normal pericardium with no significant pericardial effusion. Assessment and plan: 77-year-old female who presents with: #Septic shock: Resolved now, no fevers, off pressor support now. Likely from gram-negative elba bacteremia. Unclear source however, UA negative, chest x-ray no acute findings-Blood cultures show Klebsiella 2 out of 2 bottle growth - continue current antibiotics for now -presently on Rocephin - IV fluids, patient ordered for nuclear WBC scan - to be performed at 24 hours, follow-up results of this. - Follow-up further recommendations from infectious disease consult # Encephalopathy-had been resolving, but the last 2 nights patient has had some sporadic episodes of this. This could be delirium versus secondary to her [facility] teremia? CT scan possible cirrhosis -hepatitis panel negative patient denies alcohol use so unclear etiology. Ammonia levels are normal, LFTs overall are normal. - As mentioned above, continue pressors, IV fluids, antibiotics - Continue to monitor for now # Thrombocytopenia - again, patient does have cirrhosis seen on CT, patient not fully aware, likely cause of thrombocytopenia as well as mildly elevated coag factors. - Monitor CBC daily for now and for signs of bleeding, none presently - Hold all anticoagulants Result Diagram: 04/02/18 0500 04/02/18 0500 Results 24hrs Laboratory Tests Test 04/02/18 05:00 White Blood Count 8.0 # Red Blood Count 3.19 L Hemoglobin 10.0 L Hematocrit 30.4 L Mean Corpuscular Volume 95.3 Mean Corpuscular Hemoglobin 31.3 Mean Corpuscular Hemoglobin Concent 32.9 Red Cell Distribution Width 13.0 Platelet Count 78 L Mean Platelet Volume 11.2 H Immature Granulocytes % 0.500 H Neutrophils % 74.0 Lymphocytes % 8.8 L Monocytes % 13.8 H Eosinophils % 2.6 Basophils % 0.3 Nucleated Red Blood Cells % 0.0 Immature Granulocytes # 0.040 H Neutrophils # 5.9 Lymphocytes # 0.7 L Monocytes # 1.1 H Eosinophils # 0.2 Basophils # 0.0 Nucleated Red Blood Cells # 0.0 Sodium Level 140 Potassium Level 3.4 L Chloride Level 113 H Carbon Dioxide Level 20 L Anion Gap 7 Blood Urea Nitrogen 11 Creatinine 0.52 Est Glomerular Filtrat Rate mL/min Glucose Level 108 Calcium Level 8.3 L Exam/Review of Systems Exam Vitals Vital Signs Date Temp Pulse Resp B/P (MAP) Pulse Ox O2 O2 Flow FiO2 Time Delivery Rate 04/02/18 79 08:07 04/02/18 98.2 18 135/66 98 07:17 (89) 04/01/18 Room Air 18:00 Intake and Output 04/01/18 04/01/18 04/02/18 1515:00 23:00 07:00 IntakeIntake Total 876.726 ml 277.8213 ml 1150 ml BalanceBalance 876.726 ml 277.8213 ml 1150 ml Results Results 24hrs Laboratory Tests Test 04/02/18 05:00 White Blood Count 8.0 # Red Blood Count 3.19 L Hemoglobin 10.0 L Hematocrit 30.4 L Mean Corpuscular Volume 95.3 Mean Corpuscular Hemoglobin 31.3 Mean Corpuscular Hemoglobin Concent 32.9 Red Cell Distribution Width 13.0 Platelet Count 78 L Mean Platelet Volume 11.2 H Immature Granulocytes % 0.500 H Neutrophils % 74.0 Lymphocytes % 8.8 L Monocytes % 13.8 H Eosinophils % 2.6 Basophils % 0.3 Nucleated Red Blood Cells % 0.0 Immature Granulocytes # 0.040 H Neutrophils # 5.9 Lymphocytes # 0.7 L Monocytes # 1.1 H Eosinophils # 0.2 Basophils # 0.0 Nucleated Red Blood Cells # 0.0 Sodium Level 140 Potassium Level 3.4 L Chloride Level 113 H Carbon Dioxide Level 20 L Anion Gap 7 Blood Urea Nitrogen 11 Creatinine 0.52 Est Glomerular Filtrat Rate mL/min Glucose Level 108 Calcium Level 8.3 L Medications Medication Current Medications Sodium Chloride 1,000 ml @ 100 mls/hr Q10H IV Last administered on 04/01/18 19:55; Admin Dose 100 MLS/HR; Start 03/29/18 at 23:20 IV Flush (NS 3 ml) 3 ml PER PROTOCOL IV ; Start 03/29/18 at 23:30 Acetaminophen (Tylenol Tab) 650 mg Q6H PRN PO .PAIN 1-3 OR TEMP Last administered on 04/01/18 19:55; Admin Dose 650 MG; Start 03/29/18 at 23:30 Acetaminophen/ Hydrocodone Bitart ([place] (5/325)) 1 tab Q6H PRN PO .PAIN 4-6 Last administered on 03/31/18 20:09; Admin Dose 1 TAB; Start 03/29/18 at 23:30 Morphine Sulfate (morphine) 2 mg Q4H PRN IV .PAIN 7-10; Start 03/29/18 at 23:30 Lorazepam (Ativan) 1 mg Q6H PRN PO ANXIETY Last administered on 04/01/18 11:36; Admin Dose 1 MG; Start 03/31/18 at 20:30 Ceftriaxone Sodium 50 ml @ 100 mls/hr Q24H IVPB Last administered on 04/01/18 15:23; Admin Dose 100 MLS/HR; Start 04/01/18 at 13:00 ANGY GROVER Apr 02, 2018 09:37
[2018-04-02] MEDS ORDERED: POTASSIUM CHLORIDE (SR) 20 MEQ TAB PO STA (13:34)
[2018-04-02] MEDS ORDERED: ALBUTEROL/IPRATROPIUM (NEB) 3 ML AMP HHN PRN (17:00)
[2018-04-02] MEDS: ALBUTEROL/IPRATROPIUM (NEB) 3 ML AMP HHN SCH ×2 (17:05→19:30)
--- NOTE | 2018-04-02 17:56 | CONS ---
Assessment/Plan Assessment/Plan Hospital Course (Demo Recall) ID PROGRESS NOTE CURRENT ABX: DAY # Ceftriaxone s/p Zosyn 04/02/18 0500 04/02/18 0500 24H INTERVAL SUMMARY * Lethargic -- resting w/eyes closed, VSS, NAD * CT of the brain on admission revealed no acute abnormalities chest x-ray revealed no radiographic evidence of an acute cardiopulmonary process. * CT of the abdomen and pelvis revealed no evidence of urolithiasis, obstructive uropathy, diverticulitis or appendicitis. Levoscoliosis lumbar spine. Central stenosis L4-L5. Chronic superior endplate compression fracture L1. MICRO * Microbiology: Blood culture on admission grew Klebsiella pneumonia susceptible to all antibiotics except Ancef. Repeat blood cultures negative. * 03/29/18 BCX (+)GNR BLOOD CULTURE Final Organism 1 K.PNEUMONIAE SSP PNEUMONIAE K PNE SPP M.I.C. RX --------- --- CEFAZOLIN I CEFOTAXIME S CIPROFLOXACIN <=0.25 S GENTAMICIN <=1 S LEVOFLOXACIN <=0.12 S TOBRAMYCIN <=1 S TRIMETHOPRIM/SULFAMETHOXAZOLE <=20 S PHYSICAL EXAMINATION: GENERAL: Afebrile, VSS HEENT: AT, NC, anicteric NECK: Grossly normal CHEST: Equal chest rise bilaterally = without dyspnea HEART: Pulse RRR ABDOMEN: Soft / ND EXTREMITIES: Warm, SKIN: No rash, no diaphoresis ID ASSESSMENT 77 yo F admit with: 1. Sepsis with shock on admission, fevers, leukocytosis, and acute encephalopathy => RESOLVED 2. Gram-negative rods bacteremia of unclear etiology = SUSPECT GI/LIVER SOURCE 3. Hepatic cirrhosis with fatty infiltration 4. Anemia and thrombocytopenia - likely due to cirrhosis 5. Aortic arch and bilateral carotid atherosclerosis 6. Cervicalgia x > 3 mos * CT C-spine: Straightening of the normal lordosis concerning for muscle spasm. Multilevel degenerative disc disease greatest at C6-7 with osteophyte and disc complex at this level causing mild central canal stenosis and uncovertebral hypertrophy contributing to bilateral foraminal narrowing.5. Facet arthropathy is present at multiple levels most severe on the right at C7-T1 with trace anterolisthesis at this level but no significant stenosis. 7. Chronic L1 compression fracture * Rotary levoscoliosis L-spine w/DJD, Central stenosis is present at L4-L5. Chronic superior endplate compression fracture of the L1. 8. Osteopenia = possibly osteoporosis 9. Hearing deficit (-)MRSA Nares Screen ABX ALLERGIES: KNDA INVASIVES: PIV CURRENT ABX: DAY # => Ceftriaxone s/p Zosyn ID RECOMMENDATIONS/PLAN: 1. Patient is clinically stable, repeat blood cultures negative, change antibiotics to Rocephin, await for WBC labeled nuclear scan Consultation Date/Type/Reason Admit Date/Time Mar 29, 2018 at 23:14 Initial Consult Date Date/Time of Note DATE: 04/02/18 TIME: 17:56 Exam/Review of Systems Exam Vitals Vital Signs Date Temp Pulse Resp B/P (MAP) Pulse Ox O2 O2 Flow FiO2 Time Delivery Rate 04/02/18 2.0 17:12 04/02/18 91 24 98 Nasal 17:09 Cannula 04/02/18 99.0 152/77 15:28 (102) Intake and Output 04/01/18 04/01/18 04/02/18 1515:00 23:00 07:00 IntakeIntake Total 876.726 ml 277.8213 ml 1150 ml BalanceBalance 876.726 ml 277.8213 ml 1150 ml Results Result Diagram: 04/02/18 0500 04/02/18 0500 Results 24hrs Laboratory Tests Test 04/02/18 05:00 White Blood Count 8.0 # Red Blood Count 3.19 L Hemoglobin 10.0 L Hematocrit 30.4 L Mean Corpuscular Volume 95.3 Mean Corpuscular Hemoglobin 31.3 Mean Corpuscular Hemoglobin Concent 32.9 Red Cell Distribution Width 13.0 Platelet Count 78 L Mean Platelet Volume 11.2 H Immature Granulocytes % 0.500 H Neutrophils % 74.0 Lymphocytes % 8.8 L Monocytes % 13.8 H Eosinophils % 2.6 Basophils % 0.3 Nucleated Red Blood Cells % 0.0 Immature Granulocytes # 0.040 H Neutrophils # 5.9 Lymphocytes # 0.7 L Monocytes # 1.1 H Eosinophils # 0.2 Basophils # 0.0 Nucleated Red Blood Cells # 0.0 Sodium Level 140 Potassium Level 3.4 L Chloride Level 113 H Carbon Dioxide Level 20 L Anion Gap 7 Blood Urea Nitrogen 11 Creatinine 0.52 Est Glomerular Filtrat Rate mL/min Glucose Level 108 Calcium Level 8.3 L Medications Medication Current Medications IV Flush (NS 3 ml) 3 ml PER PROTOCOL IV ; Start 03/29/18 at 23:30 Acetaminophen (Tylenol Tab) 650 mg Q6H PRN PO .PAIN 1-3 OR TEMP Last administered on 04/01/18at 19:55; Admin Dose 650 MG; Start 03/29/18 at 23:30 Acetaminophen/ Hydrocodone Bitart ([place] (5/325)) 1 tab Q6H PRN PO .PAIN 4-6 Last administered on 03/31/18 20:09; Admin Dose 1 TAB; Start 03/29/18 at 23:30 Morphine Sulfate (morphine) 2 mg Q4H PRN IV .PAIN 7-10; Start 03/29/18 at 23:30 Lorazepam (Ativan) 1 mg Q6H PRN PO ANXIETY Last administered on 04/01/18at 11:36; Admin Dose 1 MG; Start 03/31/18 at 20:30 Ceftriaxone Sodium 50 ml @ 100 mls/hr Q24H IVPB Last administered on 04/01/18at 15:23; Admin Dose 100 MLS/HR; Start 04/01/18 at 13:00 Albuterol/ Ipratropium (Duoneb) 3 ml Q6H RESP THERAPY HHN Last administered on 04/02/18 17:05; Admin Dose 3 ML; Start 04/02/18 at 17:00 Albuterol/ Ipratropium (Duoneb) 3 ml Q6H RESP THERAPY PRN HHN SHORTNESS OF BREATH; Start 04/02/18 at 17:00 HELADIO PERLA NP Apr 02, 2018 17:56
[2018-04-03] VITALS (10 sets, daily range): BP systolic 128–138; BP diastolic 62–71; PULSE 57–90; RESP 16–18
[2018-04-03] MEDS: ALBUTEROL/IPRATROPIUM (NEB) 3 ML AMP HHN SCH ×4 (01:30→21:19)
--- NOTE | 2018-04-03 09:59 | PN ---
Date/Time of Note Date/Time of Note DATE: 04/03/18 TIME: 09:58 Assessment/Plan VTE Prophylaxis Risk score (from Ns)>0 risk: 6 SCD applied (from Ns): Yes Pharmacological prophylaxis: other Lines/Catheters [facility]from [facility] Central Line Central line still needed: Yes Urinary Cath still in place: No Assessment/Plan Hospital Course S: Per nursing staff, no acute events overnight, ambulating tolerating diet. Awaiting WBC scan. O: VS-see below Physical exam General: lying in bed, no acute distress Head: Normocephalic atraumatic Eyes: EOMI, pupils reactive to light Neck: Supple, nontender, midline Respiratory: Clear to auscultation bilaterally Cardiovascular: regular rate, no obvious murmurs Gastrointestinal: non-tender to palpation, bowel sounds heard. Neurological: No focal deficits 2D echo: Conclusions: Normal left ventricular systolic function. Normal left ventricular cavity size. Normal left ventricular wall thickness. Ejection fraction is visually estimated at 60 %. Tissue Doppler/Mitral Doppler indices are consistent with impaired relaxation (Stage I diastolic dysfunction). Normal right ventricular size. Normal right ventricular systolic function. The left atrium is normal in size. The right atrium is normal in size. No hemodynamically significant aortic stenosis by doppler. Mild aortic valve regurgitation. Trace mitral regurgitation. There is mild tricuspid regurgitation. Normal pericardium with no significant pericardial effusion. Assessment and plan: 77-year-old female who presents with: #Septic shock: Resolved now, no fevers, off pressor support now. Likely from gram-negative elba bacteremia. Unclear source however, UA negative, chest x-ray no acute findings-Blood cultures show Klebsiella 2 out of 2 bottle growth. - continue current antibiotics for now -presently on Rocephin - IV fluids, patient ordered for nuclear WBC scan -to be performed today, follow-up results this - Follow-up further recommendations from infectious disease consult # Encephalopathy-had been resolving, but the last 2 nights patient has had some sporadic episodes of this. This could be delirium versus secondary to her bacteremia? CT scan possible cirrhosis -hepatitis panel negative patient denies alcohol use so unclear etiology. Ammonia levels are normal, LFTs overall are normal. - As mentioned above, continue pressors, IV fluids, antibiotics - Continue to monitor for now # Thrombocytopenia - again, patient does have cirrhosis seen on CT, patient not fully aware, likely cause of thrombocytopenia as well as mildly elevated coag factors. - Monitor CBC daily for now and for signs of bleeding, none presently - Hold all anticoagulants Result Diagram: 04/03/18 0514 04/03/18 0513 Results 24hrs Laboratory Tests Test 04/03/18 05:13 04/03/18 05:14 Sodium Level 139 Potassium Level 3.6 Chloride Level 105 Carbon Dioxide Level 26 Anion Gap 8 Blood Urea Nitrogen 5 L Creatinine 0.50 Est Glomerular Filtrat Rate mL/min Glucose Level 95 Calcium Level 8.7 Phosphorus Level 3.3 Magnesium Level 1.6 L White Blood Count 5.7 # Red Blood Count 2.93 L Hemoglobin 9.3 L Hematocrit 27.8 L Mean Corpuscular Volume 94.9 Mean Corpuscular Hemoglobin 31.7 Mean Corpuscular Hemoglobin Concent 33.5 Red Cell Distribution Width 12.8 Platelet Count 92 L Mean Platelet Volume 11.2 H Immature Granulocytes % 1.100 H Neutrophils % Segmented Neutrophils % (Manual) 72 Band Neutrophils % (Manual) 1 Lymphocytes % Lymphocytes % (Manual) 10 L Reactive Lymphocytes % (Manual) 1 H Monocytes % Monocytes % (Manual) 11 Eosinophils % Eosinophils % (Manual) 3 Basophils % Metamyelocytes % (manual) 2 H Nucleated Red Blood Cells % 4 H Immature Granulocytes # 0.060 H Neutrophils # Neutrophils # (Manual) 4.1 Band Neutrophils # 0.0 Lymphocytes (Manual) 0.5 L Lymphocytes # Reactive Lymphocytes # 0.0 Monocytes # Monocytes # (Manual) 0.6 Eosinophils # Basophils # Metamyelocytes # 0.1 H Nucleated Red Blood Cells # Platelet Estimate DECREASED Giant Platelets 3 H Poikilocytosis 1+ Anisocytosis 1+ Macrocytosis 1+ Exam/Review of Systems Exam Vitals Vital Signs Date Temp Pulse Resp B/P (MAP) Pulse Ox O2 O2 Flow FiO2 Time Delivery Rate 04/03/18 78 20 98 Aerosol 2.0 09:03 Mask 04/03/18 99.2 138/71 07:27 (93) Intake and Output 04/02/18 04/02/18 04/03/18 1515:00 23:00 07:00 IntakeIntake Total 200 ml BalanceBalance 200 ml Results Results 24hrs Laboratory Tests Test 04/03/18 05:13 04/03/18 05:14 Sodium Level 139 Potassium Level 3.6 Chloride Level 105 Carbon Dioxide Level 26 Anion Gap 8 Blood Urea Nitrogen 5 L Creatinine 0.50 Est Glomerular Filtrat Rate mL/min Glucose Level 95 Calcium Level 8.7 Phosphorus Level 3.3 Magnesium Level 1.6 L White Blood Count 5.7 # Red Blood Count 2.93 L Hemoglobin 9.3 L Hematocrit 27.8 L Mean Corpuscular Volume 94.9 Mean Corpuscular Hemoglobin 31.7 Mean Corpuscular Hemoglobin Concent 33.5 Red Cell Distribution Width 12.8 Platelet Count 92 L Mean Platelet Volume 11.2 H Immature Granulocytes % 1.100 H Neutrophils % Segmented Neutrophils % (Manual) 72 Band Neutrophils % (Manual) 1 Lymphocytes % Lymphocytes % (Manual) 10 L Reactive Lymphocytes % (Manual) 1 H Monocytes % Monocytes % (Manual) 11 Eosinophils % Eosinophils % (Manual) 3 Basophils % Metamyelocytes % (manual) 2 H Nucleated Red Blood Cells % 4 H Immature Granulocytes # 0.060 H Neutrophils # Neutrophils # (Manual) 4.1 Band Neutrophils # 0.0 Lymphocytes (Manual) 0.5 L Lymphocytes # Reactive Lymphocytes # 0.0 Monocytes # Monocytes # (Manual) 0.6 Eosinophils # Basophils # Metamyelocytes # 0.1 H Nucleated Red Blood Cells # Platelet Estimate DECREASED Giant Platelets 3 H Poikilocytosis 1+ Anisocytosis 1+ Macrocytosis 1+ Medications Medication Current Medications IV Flush (NS 3 ml) 3 ml PER PROTOCOL IV ; Start 03/29/18 at 23:30 Acetaminophen (Tylenol Tab) 650 mg Q6H PRN PO .PAIN 1-3 OR TEMP Last admin istered on 04/01/18at 19:55; Admin Dose 650 MG; Start 03/29/18 at 23:30 Acetaminophen/ Hydrocodone Bitart ([place] (5/325)) 1 tab Q6H PRN PO .PAIN 4-6 Last administered on 03/31/18at 20:09; Admin Dose 1 TAB; Start 03/29/18 at 23:30 Morphine Sulfate (morphine) 2 mg Q4H PRN IV .PAIN 7-10; Start 03/29/18 at 23:30 Lorazepam (Ativan) 1 mg Q6H PRN PO ANXIETY Last administered on 04/01/18at 11:36; Admin Dose 1 MG; Start 03/31/18 at 20:30 Ceftriaxone Sodium 50 ml @ 100 mls/hr Q24H IVPB Last administered on 04/01/18at 15:23; Admin Dose 100 MLS/HR; Start 04/01/18 at 13:00 Albuterol/ Ipratropium (Duoneb) 3 ml Q6H RESP THERAPY HHN Last administered on 04/03/18at 08:59; Admin Dose 3 ML; Start 04/02/18 at 17:00 Albuterol/ Ipratropium (Duoneb) 3 ml Q6H RESP THERAPY PRN HHN SHORTNESS OF BREATH; Start 04/02/18 at 17:00 Magnesium Sulfate/ Dextrose 100 ml @ 100 mls/hr ONCE ONCE IVPB ; Start 04/03/18 at 11:00; Stop 04/03/18 at 11:59 ANGY GROVER Apr 03, 2018 09:59
[2018-04-03] MEDS ORDERED: MAGNESIUM SULFATE 1 GM/D5W 100 ML IVPB ONE (11:00)
[2018-04-03] MEDS: CEFTRIAXONE 1 GM/50 ML (PMX) 50 ML IVPB SCH (14:08)
[2018-04-03] MEDS: ACETAMINOPHEN 325 MG TAB PO PRN (21:16)
[2018-04-04] VITALS (11 sets, daily range): BP systolic 121–173; BP diastolic 60–86; PULSE 74–94; RESP 16–18
[2018-04-04] MEDS: ALBUTEROL/IPRATROPIUM (NEB) 3 ML AMP HHN SCH ×4 (02:33→19:53)
[2018-04-04] MEDS: HYDROCODONE/APAP (5/325) TAB PO PRN (09:18)
[2018-04-04] MEDS ORDERED: POTASSIUM CHLORIDE 20 MEQ POWDER FOR ORAL SOLN PO ONE (10:30)
[2018-04-04] MEDS ORDERED: MAGNESIUM SULFATE 2 GM/50 ML 50 ML IVPB ONE (12:00)
[2018-04-04] MEDS: CEFTRIAXONE 1 GM/50 ML (PMX) 50 ML IVPB SCH (12:27)
--- NOTE | 2018-04-04 13:40 | CONS ---
Assessment/Plan Assessment/Plan Hospital Course (Demo Recall) ID PROGRESS NOTE CURRENT ABX: DAY #6.5 Ceftriaxone s/p Zosyn 04/04/18 0536 04/04/18 0536 24H INTERVAL SUMMARY * Clinically stable -- has recovered from acute sepsis -- Lethargy & generalized weakness as expected, VSS, NAD * I discussed patient's progress with Dr. Brown today -- ABD is nontender -- she has made remarkable recovery -- RECOMMENDATION IS TO DC WBC LABELED SCAN. * CT of the brain on admission revealed no acute abnormalities chest x-ray revealed no radiographic evidence of an acute cardiopulmonary process. * CT of the abdomen and pelvis revealed no evidence of urolithiasis, obstructive uropathy, diverticulitis or appendicitis. Levoscoliosis lumbar spine. Central stenosis L4-L5. Chronic superior endplate compression fracture L1. MICRO * Microbiology: Blood culture on admission grew Klebsiella pneumonia susceptible to all antibiotics except Ancef. Repeat blood cultures negative. * 03/29/18 BCX (+)GNR BLOOD CULTURE Final Organism 1 K.PNEUMONIAE SSP PNEUMONIAE K PNE SPP M.I.C. RX --------- --- CEFAZOLIN I CEFOTAXIME S CIPROFLOXACIN <=0.25 S GENTAMICIN <=1 S LEVOFLOXACIN <=0.12 S TOBRAMYCIN <=1 S TRIMETHOPRIM/SULFAMETHOXAZOLE <=20 S PHYSICAL EXAMINATION: GENERAL: Afebrile, VSS HEENT: AT, NC, anicteric NECK: Grossly normal CHEST: Equal chest rise bilaterally = without dyspnea HEART: Pulse RRR ABDOMEN: Soft / ND EXTREMITIES: Warm, SKIN: No rash, no diaphoresis ID ASSESSMENT 77 yo F admit with: 1. s/p Sepsis with shock on admission, fevers, leukocytosis, and acute encephalopathy => RESOLVED 2. Gram-negative rods bacteremia of unclear etiology => SUSPECT GI SOURCE 3. Hepatic cirrhosis with fatty infiltration 4. Anemia and thrombocytopenia - likely due to cirrhosis 5. Aortic arch and bilateral carotid atherosclerosis 6. Cervicalgia x > 3 mos * CT C-spine: Straightening of the normal lordosis concerning for muscle spasm. Multilevel degenerative disc disease greatest at C6-7 with osteophyte and disc complex at this level causing mild central canal stenosis and uncovertebral hypertrophy contributing to bilateral foraminal narrowing.5. Facet arthropathy is present at multiple levels most severe on the right at C7-T1 with trace anterolisthesis at this level but no significant stenosis. 7. Chronic L1 compression fracture * Rotary levoscoliosis L-spine w/DJD, Central stenosis is present at L4-L5. Chronic superior endplate compression fracture of the L1. 8. Osteopenia = possibly osteoporosis 9. Hearing deficit (-)MRSA Nares Screen ABX ALLERGIES: KNDA INVASIVES: PIV CURRENT ABX: DAY #6.5 => Ceftriaxone s/p Zosyn ID RECOMMENDATIONS/PLAN: 1. Patient is clinically stable, repeat blood cultures negative,== she has greatly improved despite known etiology of bacteremia 2. I discussed patient's progress with Dr. Brown today: ABD is nontender,she has made remarkable recovery RECOMMENDATION IS TO DC WBC LABELED SCAN. 3. DC PLANNING: * Continue IV ABX to complete 7/14 days total ABX for GNR-KP bacteremia * May "PO Switch" to Quinolone (Levaquin 500mg po daily) to complete days #8 thru day #14 ABX coverage. . Consultation Date/Type/Reason Admit Date/Time Mar 29, 2018 at 23:14 Initial Consult Date Date/Time of Note DATE: 04/04/18 TIME: 13:33 Exam/Review of Systems Exam Vitals Vital Signs Date Temp Pulse Resp B/P (MAP) Pulse Ox O2 O2 Flow FiO2 Time Delivery Rate 04/04/18 74 12:01 04/04/18 98.0 18 130/62 98 11:28 (84) 04/04/18 Room Air 03:40 04/04/18 21 02:33 04/03/18 2.0 09:03 Intake and Output 04/03/18 04/03/18 04/04/18 1515:00 23:00 07:00 IntakeIntake Total 150 ml 800 ml 200 ml OutputOutput Total 900 ml BalanceBalance 150 ml -100 ml 200 ml Results Result Diagram: 04/04/18 0536 04/04/18 0536 Results 24hrs Laboratory Tests Test 04/04/18 05:36 White Blood Count 5.7 Red Blood Count 2.96 L Hemoglobin 9.3 L Hematocrit 27.5 L Mean Corpuscular Volume 92.9 Mean Corpuscular Hemoglobin 31.4 Mean Corpuscular Hemoglobin Concent 33.8 Red Cell Distribution Width 12.6 Platelet Count 128 #L Mean Platelet Volume 10.9 H Immature Granulocytes % 1.600 H Neutrophils % 53.2 Lymphocytes % 19.1 Monocytes % 19.6 H Eosinophils % 6.3 Basophils % 0.2 Nucleated Red Blood Cells % 0.0 Immature Granulocytes # 0.090 H Neutrophils # 3.0 Lymphocytes # 1.1 Monocytes # 1.1 H Eosinophils # 0.4 Basophils # 0.0 Nucleated Red Blood Cells # 0.0 Sodium Level 142 Potassium Level 3.4 L Chloride Level 108 Carbon Dioxide Level 31 Anion Gap 3 L Blood Urea Nitrogen 3 L Creatinine 0.53 Est Glomerular Filtrat Rate mL/min Glucose Level 103 Calcium Level 8.9 Phosphorus Level 3.9 Magnesium Level 1.9 Medications Medication Current Medications IV Flush (NS 3 ml) 3 ml PER PROTOCOL IV ; Start 03/29/18 at 23:30 Acetaminophen (Tylenol Tab) 650 mg Q6H PRN PO .PAIN 1-3 OR TEMP Last administ ered on 04/03/18 21:16; Admin Dose 650 MG; Start 03/29/18 at 23:30 Acetaminophen/ Hydrocodone Bitart ([place] (5/325)) 1 tab Q6H PRN PO .PAIN 4-6 Last administered on 04/04/18 09:18; Admin Dose 1 TAB; Start 03/29/18 at 23:30 Morphine Sulfate (morphine) 2 mg Q4H PRN IV .PAIN 7-10; Start 03/29/18 at 23:30 Lorazepam (Ativan) 1 mg Q6H PRN PO ANXIETY Last administered on 04/01/18 11:36; Admin Dose 1 MG; Start 03/31/18 at 20:30 Ceftriaxone Sodium 50 ml @ 100 mls/hr Q24H IVPB Last administered on 04/04/18 12:27; Admin Dose 100 MLS/HR; Start 04/01/18 at 13:00 Albuterol/ Ipratropium (Duoneb) 3 ml Q6H RESP THERAPY HHN Last administered on 04/04/18 08:06; Admin Dose 3 ML; Start 2/16/19 at 17:00 Albuterol/ Ipratropium (Duoneb) 3 ml Q6H RESP THERAPY PRN HHN SHORTNESS OF BREATH; Start 04/02/18 at 17:00 Magnesium Sulfate 50 ml @ 25 mls/hr ONCE ONCE IVPB Last administered on 04/04/18at 12:29; Admin Dose 25 MLS/HR; Start 04/04/18 at 12:00; Stop 04/04/18 at 13:59 HELADIO PERLA KEYING MACHINE OPERATOR Apr 04, 2018 13:40
--- NOTE | 2018-04-04 14:58 | PN ---
Date/Time of Note Date/Time of Note DATE: 04/04/18 TIME: 14:49 Assessment/Plan VTE Prophylaxis Risk score (from Ns)>0 risk: 6 SCD applied (from Ns): Yes Pharmacological prophylaxis: NA/contraindicated Pharm contraindication: low risk/ambulating Lines/Catheters IV Catheter Type (from Nrsg): Central Line Central line still needed: Yes Urinary Cath still in place: No Assessment/Plan Assessment/Plan 77 yo woman with cirrhosis presents in septic shock with Klebsiella bacteremia. #Septic shock: Resolved now, no fevers, off pressor support now. Likely from gram-negative elba bacteremia. Unclear source however, UA negative, chest x-ray no acute findings -Blood cultures show Klebsiella 2 out of 2 bottle growth. - continue current antibiotics for now -presently on Rocephin - ID is concerned about an occult abscess; pending tagged WBC scan to look for one. - Follow-up further recommendations from infectious disease consult # Encephalopathy - Resolved. Patient is alert and oriented; though does have episodes of con fusion. - Likely from delerium related to her age - Will hold off on benzos, nighttime interruptions. - As mentioned above, continue pressors, IV fluids, antibiotics - Continue to monitor for now #HTN - She had an episode of HTN with BP 170s which resolved spontaneously. Otherwise normotensive; will hold off on standing BP meds. # Thrombocytopenia - Likely related to cirrhosis; exacerbated by septic shock - Now improving. Result Diagram: 04/04/18 0536 04/04/18 0536 Subjective 24 Hr Interval Summary Free Text/Dictation No acute overnight events. This morning patient very hypertensive to 170s SBP. Improved with oral norco. She reports intermittent episodes of heart palpitations. But review of telemetry shows no events. Denies pressure-like chest pain. She refused to work with PT this morning. Exam/Review of Systems Exam Vitals Vital Signs Date Temp Pulse Resp B/P (MAP) Pulse Ox O2 O2 Flow FiO2 Time Delivery Rate 04/04/18 74 12:01 04/04/18 98.0 18 130/62 98 11:28 (84) 04/04/18 Room Air 03:40 04/04/18 21 02:33 04/03/18 2.0 09:03 Intake and Output 04/03/18 04/03/18 04/04/18 1515:00 23:00 07:00 IntakeIntake Total 150 ml 800 ml 200 ml OutputOutput Total 900 ml BalanceBalance 150 ml -100 ml 200 ml Exam General:Well developed woman lying in bed, no distress. Head: Normocephalic atraumatic Eyes: EOMI, pupils reactive to light Neck: Supple, nontender, midline Respiratory: Clear to auscultation bilaterally Cardiovascular: regular rate, no murmurs Gastrointestinal: non-tender to palpation, bowel sounds heard. Neurological: No focal deficits Results Results 24hrs Laboratory Tests Test 04/04/18 05:36 White Blood Count 5.7 Red Blood Count 2.96 L Hemoglobin 9.3 L Hematocrit 27.5 L Mean Corpuscular Volume 92.9 Mean Corpuscular Hemoglobin 31.4 Mean Corpuscular Hemoglobin Concent 33.8 Red Cell Distribution Width 12.6 Platelet Count 128 #L Mean Platelet Volume 10.9 H Immature Granulocytes % 1.600 H Neutrophils % 53.2 Lymphocytes % 19.1 Monocytes % 19.6 H Eosinophils % 6.3 Basophils % 0.2 Nucleated Red Blood Cells % 0.0 Immature Granulocytes # 0.090 H Neutrophils # 3.0 Lymphocytes # 1.1 Monocytes # 1.1 H Eosinophils # 0.4 Basophils # 0.0 Nucleated Red Blood Cells # 0.0 Sodium Level 142 Potassium Level 3.4 L Chloride Level 108 Carbon Dioxide Level 31 Anion Gap 3 L Blood Urea Nitrogen 3 L Creatinine 0.53 Est Glomerular Filtrat Rate mL/min Glucose Level 103 Calcium Level 8.9 Phosphorus Level 3.9 Magnesium Level 1.9 Medications Medication Current Medications IV Flush (NS 3 ml) 3 ml PER PROTOCOL IV ; Start 03/29/18 at 23:30 Acetaminophen (Tylenol Tab) 650 mg Q6H PRN PO .PAIN 1-3 OR TEMP Last administered on 04/03/18at 21:16; Admin Dose 650 MG; Start 03/29/18 at 23:30 Acetaminophen/ Hydrocodone Bitart ([place] (5/325)) 1 tab Q6H PRN PO .PAIN 4-6 Last administered on 04/04/18at 09:18; Admin Dose 1 TAB; Start 03/29/18 at 23:30 Morphine Sulfate (morphine) 2 mg Q4H PRN IV .PAIN 7-10; Start 03/29/18 at 23:30 Lorazepam (Ativan) 1 mg Q6H PRN PO ANXIETY Last administered on 04/01/18at 11:36; Admin Dose 1 MG; Start 03/31/18 at 20:30 Ceftriaxone Sodium 50 ml @ 100 mls/hr Q24H IVPB Last administered on 04/04/18at 12:27; Admin Dose 100 MLS/HR; Start 04/01/18 at 13:00 Albuterol/ Ipratropium (Duoneb) 3 ml Q6H RESP THERAPY HHN Last administered on 04/04/18at 08:06; Admin Dose 3 ML; Start 04/02/18 at 17:00 Albuterol/ Ipratropium (Duoneb) 3 ml Q6H RESP THERAPY PRN HHN SHORTNESS OF BREATH; Start 04/02/18 at 17:00 SANDRA VILLANUEVA MD Apr 04, 2018 14:58
[2018-04-04] MEDS ORDERED: LOPERAMIDE 2 MG CAP PO PRN (17:30)
[2018-04-05] VITALS (8 sets, daily range): BP systolic 113–144; BP diastolic 56–69; PULSE 89–105; RESP 18
[2018-04-05] MEDS: ALBUTEROL/IPRATROPIUM (NEB) 3 ML AMP HHN SCH ×3 (02:22→14:41)
[2018-04-05] MEDS: CEFTRIAXONE 1 GM/50 ML (PMX) 50 ML IVPB SCH (12:13)
[2018-04-05] MEDS ORDERED: LEVO500T10 PO (12:33)
--- NOTE | 2018-04-05 12:34 | PDOCDIS ---
Discharge Instructions DIAGNOSIS Discharge Diagnosis Klebsiella bacteremia Hepatic cirrhosis CONDITION [id number] Patient Condition: [id number] Good HOME CARE INSTRUCTIONS: [id number] Diet Instructions: [id number] Regular ACTIVITY: [id number] Activity Restrictions: [id number] No Restrictions FOLLOW UP/APPOINTMENTS Follow-up Plan 1. Take all medications as prescribed. 2. Finish 7 more days of levofloxacin antibiotics. 3. See your primary care doctor in1-2 weeks. 4. Avoid all alcohol as it may worsen your liver condition. SANDRA VILLANUEVA MD Apr 05, 2018 12:34
--- NOTE | 2018-04-05 15:46 | DS ---
Date/Time of Note Date/Time of Note DATE: 04/05/18 TIME: 15:40 Discharge Summary Admission/Discharge Info Admit Date/Time Mar 29, 2018 at 23:14 Discharge Date/Time Apr 05, 2018 Discharge Diagnosis Klebsiella bacteremia Hepatic cirrhosis Patient Condition: Good Consults Dr. Brown, infectious disease Procedures None Hx of Present Illness Patient is a [place] woman with no known past medical history per patient who presents to [facility] after reportedly speaking delusional thoughts by her . Patient's family members, her sisters, were called by her who also found patient speaking gibberish people patient was sent to the ED however by the time patient admitted to the ED with no additional intervention patient seemed to be completely alert and oriented. Currently simba alarcon is completely alert and oriented and has multiple complaints. Patient states that she has been suffering from neck pain, but upon further questioning this pain has been going on for 3 months now and it is not gotten better nor worsened. Patient also states that she currently has a headache and suffers from constipation. Otherwise patient states that there were no other medical issues that were concerning of her before this incident. Patient currently denies leg pain, swelling, chest pain, shortness of breath. denies diarrhea, but states she has been urinating more frequently than usual. Hospital Course Blood cultures were drawn on admission and she was found to have 2/2 bottles growing Klebsiella pneumoniae, begum-sensitive. The source was unclear. Her UA and urine cultures were negative, CXR was negative. Soon after admission her mental status returned to normal and sepsis improved. Of note, abdominal imaging showed cirrhotic liver and she also had thrombocytopenia and low albumin, confirming diagnosis of cirrhosis. No ascites. We considered a tagged WBC scan to look for occult abscess but she had no other infectious symptoms during her week hospitalization. She got IV ceftriaxone in house and will be discharged to complete 7 more days of levofloxacin (14 day total course). Home Meds Active Scripts Levofloxacin* (Levofloxacin*) 500 Mg Tablet, 500 MG PO DAILY, #7 TAB Prov:SANDRA VILLANUEVA MD 04/05/18 Follow-up Plan 1. Take all medications as prescribed. 2. Finish 7 more days of levofloxacin antibiotics. 3. See your primary care doctor in1-2 weeks. 4. Avoid all alcohol as it may worsen your liver condition. Primary Care Provider Care Physician No Primary Time spent on discharge: > 30 minutes Pending Labs Laboratory Tests Test 04/05/18 05:22 White Blood Count 7.0 10^3/ul (4.8-10.8) Red Blood Count 3.06 10^6/ul (4.20-5.40) Hemoglobin 9.8 g/dl (12.0-16.0) Hematocrit 28.9 % (37.0-47.0) Mean Corpuscular Volume 94.4 fl (82.0-101.0) Mean Corpuscular Hemoglobin 32.0 pg (29.0-33.0) Mean Corpuscular Hemoglobin Concent 33.9 g/dl (32.0-37.0) Red Cell Distribution Width 13.0 % (11.5-14.5) Platelet Count 168 10^3/UL (140-415) Mean Platelet Volume 10.4 fl (7.4-10.4) Immature Granulocytes % 1.400 % (0.001-0.429) Neutrophils % 64.0 % (39.0-77.0) Lymphocytes % 17.8 % (15.0-51.0) Monocytes % 12.7 % (0.0-11.0) Eosinophils % 3.8 % (0.0-7.0) Basophils % 0.3 % (0.0-2.0) Nucleated Red Blood Cells % 0.0 /100WBC (0.0-0.0) Immature Granulocytes # 0.100 10^3/ul (0.0-0.031) Neutrophils # 4.5 10^3/ul (1.6-7.5) Lymphocytes # 1.3 10^3/ul (0.8-2.9) Monocytes # 0.9 10^3/ul (0.3-0.9) Eosinophils # 0.3 10^3/ul (0.0-0.5) Basophils # 0.0 10^3/ul (0.0-0.1) Nucleated Red Blood Cells # 0.0 10^3/ul (0.0-0.0) Sodium Level 140 mmol/L (135-144) Potassium Level 3.7 mmol/L (3.5-5.1) Chloride Level 104 mmol/L (97-110) Carbon Dioxide Level 32 mmol/L (21-31) Anion Gap 4 (5-13) Blood Urea Nitrogen 3 mg/dl (7-20) Creatinine 0.51 mg/dl (0.44-1.00) Est Glomerular Filtrat Rate mL/min mL/min (>60) Glucose Level 107 mg/dl (70-220) Calcium Level 9.1 mg/dl (8.4-10.2) Phosphorus Level 3.7 mg/dl (2.5-4.9) Magnesium Level 2.0 mg/dl (1.7-2.5) Total Bilirubin 0.3 mg/dl (0.2-1.3) Direct Bilirubin 0.00 mg/dl (0.00-0.20) Indirect Bilirubin 0.3 mg/dl (0-1.1) Aspartate Amino Transf (AST/SGOT) 35 IU/L (15-46) Alanine Aminotransferase (ALT/SGPT) 39 IU/L (13-69) Alkaline Phosphatase 153 IU/L (42-121) Total Protein 5.8 g/dl (6.1-8.1) Albumin 2.6 g/dl (3.3-4.9) Globulin 3.20 g/dl (1.3-3.2) Albumin/Globulin Ratio 0.81 SANDRA VILLANUEVA MD Apr 05, 2018 15:46
--- NOTE | 2018-04-05 15:54 | CONS ---
Assessment/Plan Assessment/Plan Hospital Course (Demo Recall) ID PROGRESS NOTE CURRENT ABX: DAY #7.5 Ceftriaxone s/p Zosyn 04/05/18 0522 04/05/18 0522 24H INTERVAL SUMMARY * Excellent response to IV ABX -- she is clinically stable for "PO Switch" to Quinolone ABX. * ABD is nontender -- she has made remarkable recovery -- RECOMMENDATION IS TO DC WBC LABELED SCAN per discussion w/Dr. Brown yesterday. * CT of the brain on admission revealed no acute abnormalities chest x-ray revealed no radiographic evidence of an acute cardiopulmonary process. * CT of the abdomen and pelvis revealed no evidence of urolithiasis, obstructive uropathy, diverticulitis or appendicitis. Levoscoliosis lumbar spine. Central stenosis L4-L5. Chronic superior endplate compression fracture L1. MICRO * Microbiology: Blood culture on admission grew Klebsiella pneumonia susceptible to all antibiotics except Ancef. Repeat blood cultures negative. * 03/29/18 BCX (+)GNR BLOOD CULTURE Final Organism 1 K.PNEUMONIAE SSP PNEUMONIAE K PNE SPP M.I.C. RX --------- --- CEFAZOLIN I CEFOTAXIME S CIPROFLOXACIN <=0.25 S GENTAMICIN <=1 S LEVOFLOXACIN <=0.12 S TOBRAMYCIN <=1 S TRIMETHOPRIM/SULFAMETHOXAZOLE <=20 S PHYSICAL EXAMINATION: GENERAL: Afebrile, VSS HEENT: AT, NC, anicteric NECK: Grossly normal CHEST: Equal chest rise bilaterally = without dyspnea HEART: Pulse RRR ABDOMEN: Soft / ND EXTREMITIES: Warm, SKIN: No rash, no diaphoresis ID ASSESSMENT 77 yo F admit with: 1. s/p Sepsis with shock on admission, fevers, leukocytosis, and acute encephalopathy => RESOLVED 2. Gram-negative rods bacteremia of unclear etiology => SUSPECT GI SOURCE 3. Hepatic cirrhosis with fatty infiltration 4. Anemia and thrombocytopenia - likely due to cirrhosis 5. Aortic arch and bilateral carotid atherosclerosis 6. Cervicalgia x > 3 mos * CT C-spine: Straightening of the normal lordosis concerning for muscle spasm. Multilevel degenerative disc disease greatest at C6-7 with osteophyte and disc complex at this level causing mild central canal stenosis and uncovertebral hy pertrophy contributing to bilateral foraminal narrowing.5. Facet arthropathy is present at multiple levels most severe on the right at C7-T1 with trace anterolisthesis at this level but no significant stenosis. 7. Chronic L1 compression fracture * Rotary levoscoliosis L-spine w/DJD, Central stenosis is present at L4-L5. Chronic superior endplate compression fracture of the L1. 8. Osteopenia = possibly osteoporosis 9. Hearing deficit (-)MRSA Nares Screen ABX ALLERGIES: KNDA INVASIVES: PIV CURRENT ABX: DAY #7.5 => Ceftriaxone s/p Zosyn ID RECOMMENDATIONS/PLAN: 1. Patient is clinically stable, repeat blood cultures negative,== she has greatly improved despite known etiology of bacteremia 2. DC PLANNING: * Continue IV ABX to complete 7/14 days total ABX for GNR-KP bacteremia * May "PO Switch" to Quinolone (Levaquin 500mg po daily) to complete days #8 thru day #14 ABX coverage. . Consultation Date/Type/Reason Admit Date/Time Mar 29, 2018 at 23:14 Initial Consult Date Date/Time of Note DATE: 04/05/18 TIME: 15:52 Exam/Review of Systems Exam Vitals Vital Signs Date Temp Pulse Resp B/P (MAP) Pulse Ox O2 O2 Flow FiO2 Time Delivery Rate 04/05/18 89 18 96 21 14:41 04/05/18 98.6 130/61 Room Air 11:23 (84) 04/03/18 2.0 09:03 Intake and Output 04/04/18 04/04/18 04/05/18 1515:00 23:00 07:00 IntakeIntake Total 50 ml 750 ml BalanceBalance 50 ml 750 ml Results Result Diagram: 04/05/1852104/05/18521 Results 24hrs Laboratory Tests Test 04/05/18 05:22 White Blood Count 7.0 # Red Blood Count 3.06 L Hemoglobin 9.8 L Hematocrit 28.9 L Mean Corpuscular Volume 94.4 Mean Corpuscular Hemoglobin 32.0 Mean Corpuscular Hemoglobin Concent 33.9 Red Cell Distribution Width 13.0 Platelet Count 168 # Mean Platelet Volume 10.4 Immature Granulocytes % 1.400 H Neutrophils % 64.0 Lymphocytes % 17.8 Monocytes % 12.7 H Eosinophils % 3.8 Basophils % 0.3 Nucleated Red Blood Cells % 0.0 Immature Granulocytes # 0.100 H Neutrophils # 4.5 Lymphocytes # 1.3 Monocytes # 0.9 Eosinophils # 0.3 Basophils # 0.0 Nucleated Red Blood Cells # 0.0 Sodium Level 140 Potassium Level 3.7 Chloride Level 104 Carbon Dioxide Level 32 H Anion Gap 4 L Blood Urea Nitrogen 3 L Creatinine 0.51 Est Glomerular Filtrat Rate mL/min Glucose Level 107 Calcium Level 9.1 Phosphorus Level 3.7 Magnesium Level 2.0 Total Bilirubin 0.3 Direct Bilirubin 0.00 Indirect Bilirubin 0.3 Aspartate Amino Transf (AST/SGOT) 35 Alanine Aminotransferase (ALT/SGPT) 39 Alkaline Phosphatase 153 H Total Protein 5.8 L Albumin 2.6 L Globulin 3.20 Albumin/Globulin Ratio 0.81 Medications Medication Current Medications IV Flush (NS 3 ml) 3 ml PER PROTOCOL IV ; Start 03/29/18 at 23:30 Acetaminophen (Tylenol Tab) 650 mg Q6H PRN PO .PAIN 1-3 OR TEMP Last administered on 04/03/18at 21:16; Admin Dose 650 MG; Start 03/29/18 at 23:30 Acetaminophen/ Hydrocodone Bitart ([place] (5/325)) 1 tab Q6H PRN PO .PAIN 4-6 Last administered on 04/04/18at 09:18; Admin Dose 1 TAB; Start 03/29/18 at 23:30 Morphine Sulfate (morphine) 2 mg Q4H PRN IV .PAIN 7-10; Start 03/29/18 at 23:30 Ceftriaxone Sodium 50 ml @ 100 mls/hr Q24H IVPB Last administered on 04/05/18at 12:13; Admin Dose 100 MLS/HR; Start 04/01/18 at 13:00 Albuterol/ Ipratropium (Duoneb) 3 ml Q6H RESP THERAPY HHN Last administered on 04/05/18at 14:41; Admin Dose 3 ML; Start 04/02/18 at 17:00 Albuterol/ Ipratropium (Duoneb) 3 ml Q6H RESP THERAPY PRN HHN SHORTNESS OF BREATH; Start 04/02/18 at 17:00 Loperamide HCl (Imodium Cap) 2 mg QID PRN PO DIARRHEA Last administered on 04/04/18at 17:41; Admin Dose 2 MG; Start 04/04/18 at 17:30 HELADIO PERLA NP Apr 05, 2018 15:54
== END 2018-04-05 19:01 | disposition home or self-care (01) | DRG 871 ==
LOC: E/R 18:54 → ICU 23:14 → 6WM 04-01 19:10
PROVIDERS: ADMIT Internal Medicine; ATTEND Internal Medicine
PROC: 02HV33Z Insertion of Infusion Device into Superior Vena Cava, Percutaneous Approach (ICD-10-PCS; principal; 2018-03-29)
DX: A41.59 Other Gram-negative sepsis (principal); R65.21 Severe sepsis with septic shock; G93.40 Encephalopathy, unspecified; M48.56XA Collapsed vertebra, not elsewhere classified, lumbar region, initial encounter for fracture; D69.6 Thrombocytopenia, unspecified; D64.9 Anemia, unspecified; K74.60 Unspecified cirrhosis of liver; K76.0 Fatty (change of) liver, not elsewhere classified
CPT/HCPCS: 36415; 70450; 71045; 72125; 74176; 80048; 80053; 80307; 81001; 82140; 82607; 82746; 83036; 83605; 83690; 83735; 84100; 84439; 84443; 84484; 85025; 85378; 85384; 85610; 85730; 86704; 86709; 86803; 87040; 87081; 87086; 87340; 93005; 93306; 94640; 94664; 96374; 96375; 97110; 97116; 97163; 97167; 97530; 97535; J0696; J2543; J3370; J3475; J7030; J7050